=== PATIENT | female | born 1980 | race Caucasian/White ===

== ENCOUNTER 2025-03-24 13:36 | Emergency (ER) | payer MEDICAID, SELFPAY ==
[2025-03-24 13:37] VITALS: BMI 29.7
[2025-03-24 13:53] VITALS: BP 139/86; PULSE 91; RESP 19; TEMP 37.2; O2SAT 98
--- NOTE | 2025-03-24 14:00 | EDRME_ITS ---
Rapid Medical Screening Exam FOR[facility], LATER [facility] Arrival date/time: 03/24/25 13:36 44-year-old female with reported history of gastroparesis presents to the Emergency Department today for complaint of nausea and vomiting Chief Complaint: Nausea/Vomiting/Diarrhea Vital signs: Vital Signs Temperature 99.0 F 03/24/25 13:53 Pulse Rate 91 03/24/25 13:53 Respiratory Rate 19 03/24/25 13:53 Blood Pressure 139/86 H 03/24/25 13:53 Pulse Oximetry (%) 98 03/24/25 13:53 Oxygen Delivery Method Room Air 03/24/25 13:53
[2025-03-24 14:13] LABS: Collection Type, Urine Clean Catch
[2025-03-24 14:31] LABS: Bilirubin,Urine Negative (Negative); Blood,Urine 3+ (Negative); Clarity,Urine Clear (Clear/Hazy); Color,Urine Yellow (Lt Yel-Yel); Glucose, Urine Negative (Negative); Hyaline Casts,Urine < 1 /hpf (0-1); Ketones,Urine 2+ (Negative); Leukocyte Esterase,Urine Positive (Negative); Nitrite,Urine Negative (Negative); PH,Urine 6.0 (5.0-7.0); Protein,Urine 1+ (Neg - Trace); RBC,Urine 101 /hpf (0-3); Specific Gravity,Urine 1.036 (1.001-1.035); Squamous Epithelial Cell,Urine 17 /hpf (0-5); Urobilinogen,Urine Negative mg/dL (0.0-1.0); WBC,Urine 4 /hpf (0-5)
[2025-03-24] MEDS: METOCLOPRAMIDE INJ 5 MG/ML VIAL 2 ML 10 MG IM (14:51)
[2025-03-24 14:53] LABS: Lactate (Lactic Acid) 2.4 mMol/L (0.4-2.0)
[2025-03-24 14:54] LABS: Amphetamine/Methamp Scrn,U Negative (Negative); Barbiturate Screen,Urine Negative (Negative); Benzodiazepines Screen,Urine Negative (Negative); Benzoylecgonine Screen, Ur Negative (Negative); Fentanyl Screen,Urine Negative (Negative); Opiate Screen,Urine Negative (Negative); THC Screen,Urine Positive (Negative)
[2025-03-24 14:55] LABS: Basophils # (Auto) 0.0 Thou/mm3 (0.0-0.2); Basophils % (Auto) 0 % (0-2.5); Eosinophils # (Auto) 0.0 Thou/mm3 (0.0-0.5); Eosinophils % (Auto) 0 % (0-10); Hematocrit 40.5 % (36.0-46.0); Hemoglobin 14.0 g/dL (12.0-16.0); Immature Granulocytes Auto 0.04 Thou/mm3 (0.00-0.00); Lymphocytes # (Auto) 0.6 Thou/mm3 (1.0-4.8); Lymphocytes % (Auto) 5 % (10-50); Mean Corpuscular HGB Conc 34.6 g/dl (31.0-37.0); Mean Corpuscular Hemoglobin 29.6 pg (25.0-35.0); Mean Corpuscular Volume 86 fL (80-100); Monocytes # (Auto) 0.2 Thou/mm3 (0.0-0.8); Monocytes % (Auto) 2 % (0-12); Neutrophils # (Auto) 11.5 Thou/mm3 (1.8-7.7); Neutrophils % (Auto) 93 % (37-80); Nucleated Red Blood Cell # 0.00 Thou/mm3 (0.00-0.00); Nucleated Red Blood Cell % 0 /100 WBC (0); Platelet Count 282 Thou/mm3 (140-440); RDW Standard Deviation 39.4 fL (36.4-46.3); Red Blood Count 4.73 Miln/mm3 (4.00-5.20); White Blood Count 12.4 Thou/mm3 (3.6-11.0)
[2025-03-24 15:07] LABS: HCG,Qualitative Serum Negative
--- NOTE | 2025-03-24 15:12 | PD.EDNV ---
Nausea/Vomit./Diarrhea-RME/HPI General Chief complaint: Nausea/Vomiting/Diarrhea Stated complaint: N/V SINCE 5AM Time Seen by Provider: 03/24/25 18:14 Arrival date/time: 03/24/25 13:36 Limitations: no limitations RME / HPI RME / HPI Narrative: 03/24/25 13:36 44-year-old female with reported history of gastroparesis presents to the Emergency Department today for complaint of nausea and vomiting DR. HARVEY MAIN ED EVALUATION: 44 year old female with history of gastroparesis presents to the ED for evaluation of nausea and vomiting beginning at 05:30 AM today. States symptoms have remained constant with no known modifying factors. States presentation today is similar to previous gastroparesis flare ups. No other associated symptoms reported. Denies fevers, chills, chest pain, cough, shortness of breath, abdominal pain, diarrhea, constipation, or urinary symptoms. Related Data Home Medications ?Medication ?Instructions ?Recorded ?Confirmed duloxetine 60 mg capsule,delayed 60 mg PO DAILY 01/01/21 01/01/21 release levothyroxine 50 mcg tablet 50 mcg PO DAILY 01/01/21 01/01/21 multivitamin (Daily-Colin tablet) 1 tab PO DAILY 01/01/21 01/01/21 trazodone 150 mg tablet 150 mg PO HS 01/01/21 01/01/21 Previous Rx's ?Medication ?Instructions ?Recorded ztfeacxrfh-dxddgvlmdophj-ffrwvndk 1 cap PO Q8H PRN pain #14 caps 01/01/21 50 mg-300 mg-40 mg capsule (Fioricet) butalbital 50 mg-acetaminophen 300 1 cap PO Q4H PRN pain #10 caps 02/03/21 mg-caffeine 40 mg-codeine 30 mg cap (Fioricet with Codeine) hydrocodone 5 mg-acetaminophen 325 1 tab PO Q8H PRN pain #10 tabs 04/03/21 mg tablet acetaminophen 300 mg-codeine 30 mg 2 tab PO Q8H PRN pain #20 tabs 03/24/25 tablet cefdinir 300 mg capsule 300 mg PO BID 5 days #10 caps 03/24/25 metronidazole 500 mg tablet 500 mg PO BID #10 tabs 03/24/25 ondansetron 4 mg disintegrating 4 mg PO TID PRN nausea and 03/24/25 tablet vomiting 30 days #10 tabs Allergies Allergy/AdvReac Type Severity Reaction Status Date / Time hydrocodone AdvReac Intermediate Abdominal Verified 03/24/25 21:54 Pain Review of Systems Review of Systems Systems Reviewed: All systems reviewed, normal except as documented Past Medical History Past Medical History NEUROLOGIC: Positive Migraine CARDIAC: Positive Hypercholesterolemia RESPIRATORY: Positive Chronic Obstructive Pulmonary Disease (COPD) and Asthma GASTROINTESTINAL: Positive Gall Bladder Disease GENITOURINARY: Positive Kidney Stones MUSCULOSKELETAL: Positive Arthritis PSYCHO/SOCIAL: Positive Depression Surgical History SURGICAL: Positive Section Social History SMOKING STATUS: Current some day smoker SUBSTANCE USE: former substance user and marijuana (smokes marijuana, 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) ED Exam General Limitations: Present no limitations General appearance: Present alert and other (dry heaving during exam ) Head Head exam: Present atraumatic, normocephalic and normal inspection Eye Eye exam: Present normal appearance, PERRL and EOMI ENT ENT exam: Present normal exam, normal oropharynx and mucous membranes moist Neck Neck exam: Present normal inspection, full ROM and trachea midline Chest Chest inspection: Present normal inspection and symmetric chest wall rise Respiratory Respiratory exam: Present normal lung sounds bilaterally Cardiovascular Cardiovascular exam: Present regular rate, normal rhythm and normal heart sounds Abdominal Exam Abdominal exam: Present soft and normal bowel sounds Extremities Exam Extremities exam: Present normal inspection and full ROM Back Exam Back exam: Present normal inspection and full ROM Neurological Exam Neurological exam: Present alert, oriented X3 and CN II-XII intact Psychiatric Psychiatric exam: Present normal affect and normal mood Skin Skin exam: Present warm, dry, intact and normal color Course Quality Measures none Orders Category Date Time Status Bedside COVID-19 Antigen Test NOW Care 03/24/25 22:34 Completed Bedside Influenza A&B Antigen Test NOW Care 03/24/25 22:34 Completed Basket Turner NOW Care 03/24/25 15:44 Completed Continuous Pulse Oximetry NOW Care 03/24/25 15:44 Completed Insert IV NOW Care 03/24/25 15:[address] abdomen pelvis wo con Stat Exams 03/24/25 18:51 Completed US gall bladder Stat Exams 03/24/25 18:51 Completed Amylase Stat Lab 03/24/25 18:38 Completed Bilirubin,Direct Stat Lab 03/24/25 18:38 Completed Blood Culture (Lab) Stat Lab 03/24/25 14:40 Received CBC Stat Lab 03/24/25 14:40 Completed Comprehensive Metabolic Panel Stat Lab 03/24/25 14:40 Completed Drug Screen,Urine Stat Lab 03/24/25 14:00 Completed HCG,Qualitative Serum Stat Lab 03/24/25 14:40 Completed Lactate (Lactic Acid) Stat Lab 03/24/25 14:40 Completed Lactic Acid, 3 HR Stat Lab 03/24/25 18:38 Completed Lipase Stat Lab 03/24/25 18:38 Completed Magnesium Stat Lab 03/24/25 18:38 Completed Procalcitonin Stat Lab 03/24/25 14:40 Completed Urinalysis Stat Lab 03/24/25 14:00 Completed Urine Culture Stat Lab 03/24/25 14:00 Received Famotidine Inj [Pepcid Inj] Med 03/24/25 15:45 Discontinued 20 mg IVP X1 ONE HYDROmorphone INJ [Dilaudid Inj] Med 03/24/25 21:33 Discontinued 2 mg IVP X1 ONE MethylPREDNISolone. [SoluMEDROL Inj] Med 03/24/25 16:01 Discontinued 60 mg IVP X1 ONE MethylPREDNISolone.* [SoluMEDROL Inj] Med 03/24/25 22:03 Discontinued 125 mg IVP X1 ONE Metoclopramide Inj [Reglan Inj] Med 03/24/25 13:59 Discontinued 10 mg IM X1 ONE Ondansetron Inj [Zofran Inj] Med 03/24/25 15:45 Discontinued 4 mg IVP X1 ONE Ondansetron Inj [Zofran Inj] Med 03/24/25 21:33 Discontinued 4 mg IVP X1 ONE Sodium Chloride 0.9% 1000 ml [Ns] 1,000 ml Med 03/24/25 15:43 Discontinued IV 999 mls/hr Sodium Chloride 0.9% 1000 ml [Ns] 1,000 ml Med 03/24/25 21:33 Discontinued IV 999 mls/hr Ziprasidone Inj [Geodon Inj] Med 03/24/25 18:00 Discontinued 20 mg IM X1 ONE cefTRIAXone/D5w 1gm IV premix [Rocephin/D5w 1gm IV Med 03/24/25 21:33 Discontinued premix] 1 gm in 50 ml IV X1 metroNIDAZOLE/NS 500 MG IVPB [Flagyl 500 mg IV] Med 03/24/25 21:33 Discontinued 500 mg in 100 ml IV X1 Vital Signs Vital signs: Vital Signs Temperature 99.0 F 09/04/25 13:53 Pulse Rate 91 03/24/25 13:53 Respiratory Rate 19 03/24/25 13:53 Blood Pressure 139/86 H 03/24/25 13:53 Pulse Oximetry (%) 98 03/24/25 13:53 Oxygen Delivery Method Room Air 03/24/25 13:53 Pulse ox is 98% on room air which is adequate. Nausea/Vomiting/Diarrhea MDM Narrative MDM Narrative:: Glenis Aleman am scribing for and in the presence of Dr. Harvey. 1800: Patient signed out to Dr. Chavez pending reassessment after Geodon. Patient data External records reviewed:: [facility] previous records Clinical information provided by:: patient Social determinants that could affect healthcare access:: substance use (Marijuana ) Patient has the following chronic illnesses:: Gastroparesis How is presenting disease/condition affected by chronic disease/condition?: exacerbated by Evaluation data The following diagnostics were reviewed and interpreted by me:: lab results Lab and/or radiology exams considered but not ordered:: None Interpretation Summary: Leukocytosis Medications / Prescriptions Medications / Prescriptions considered but not ordered:: None Medication administrations:: Medication Administration History Discontinued Medications Famotidine (Famotidine Inj 10 Mg/Ml Vial 2 Ml) 20 mg IVP X1 ONE Stop: 03/24/25 15:46 Last Admin: 03/24/25 17:07 Dose: 20 mg Documented By: TOD Hydromorphone HCl (Hydromorphone Inj 2 Mg/Ml Vial) 2 mg IVP X1 ONE Stop: 03/24/25 21:34 Last Admin: 03/24/25 22:19 Dose: 2 mg Documented By: DARIUS Sodium Chloride (Ns) 1,000 mls @ 999 mls/hr IV .Q1H1M ONE Stop: 03/24/25 16:43 Last Infusion: 03/24/25 20:00 Dose: Infused Documented By: Admin: 03/24/25 17:06 Dose: 999 mls/hr Documented By: EF Sodium Chloride (Ns) 1,000 mls @ 999 mls/hr IV .Q1H1M ONE Stop: 03/24/25 22:33 Last Infusion: 03/24/25 23:15 Dose: Infused Documented By: Admin: 03/24/25 21:51 Dose: 999 mls/hr Documented By: EE Metronidazole (Flagyl 500 Mg Iv) 500 mg in 100 mls @ 100 mls/hr IV X1 ONE Stop: 03/24/25 22:32 Last Infusion: 03/24/25 23:37 Dose: Infused Documented By: Admin: 03/24/25 22:20 Dose: 100 mls/hr Documented By: EE Ceftriaxone Sodium/Dextrose (Rocephin/D5w 1gm Iv Premix) 1 gm in 50 mls @ 100 mls/hr IV X1 ONE Stop: 03/24/25 22:02 Last Infusion: 03/24/25 23:15 Dose: Infused Documented By: Admin: 03/24/25 22:19 Dose: 100 mls/hr Documented By: EE Methylprednisolone Sodium Succinate (Methylprednisolone Sod Succ 40 Mg/Ml Vial) 60 mg IVP X1 ONE Stop: 03/24/25 16:02 Last Admin: 03/24/25 17:07 Dose: 60 mg Documented By: EF Methylprednisolone Sodium Succinate (Methylprednisolone Sod Succ 62.5 Mg/Ml 2ml Vial) 125 mg IVP X1 ONE Stop: 03/24/25 22:04 Last Admin: 03/24/25 22:19 Dose: 125 mg Documented By: EE Metoclopramide HCl (Metoclopramide Inj 5 Mg/Ml Vial 2 Ml) 10 mg IM X1 ONE; Protocol Stop: 03/24/25 14:00 Last Admin: 03/24/25 14:51 Dose: 10 mg Documented By: ROBERT Ondansetron HCl (Ondansetron Inj 2 Mg/Ml Inj 2 Ml) 4 mg IVP X1 ONE; Protocol Stop: 03/24/25 15:46 Last Admin: 03/24/25 17:07 Dose: 4 mg Documented By: EF Ondansetron HCl (Ondansetron Inj 2 Mg/Ml Inj 2 Ml) 4 mg IVP X1 ONE; Protocol Stop: 03/24/25 21:34 Last Admin: 03/24/25 21:52 Dose: 4 mg Documented By: EE Ziprasidone (Ziprasidone Inj 20 Mg/Ml Vial (Non-Formulary)) 20 mg IM X1 ONE Stop: 03/24/25 18:01 Last Admin: 03/24/25 18:58 Dose: 20 mg Documented By: DB See above Consultations Consultation(s) initiated? (list below): No Diagnosis Nausea Differential Diagnosis: gastroenteritis, drug-induced nausea and vomiting and dehydration Most likely diagnosis given after review of the tests above:: Nausea, vomiting Admission Indicated Admission indicated?: not indicated Explain why admission is indicated or not indicated:: Signed out pending final disposition Admission Request Was there a request for admission?: No Disposition Plan Disposition Plan: other (specify) (signed out to Dr. Chavez ) Discharge Plan Plan Patient Disposition: HOME (Self Care) Prescriptions/Referrals Prescriptions/Med Rec: New metronidazole 500 mg tablet 500 mg PO BID Qty: 10 0RF acetaminophen-codeine 300-30 mg tablet 2 tab PO Q8H MDD 6 PRN (Reason: pain) Qty: 20 0RF ondansetron 4 mg tablet,disintegrating 4 mg PO TID PRN (Reason: nausea and vomiting) 30 Days Qty: 10 0RF cefdinir 300 mg capsule 300 mg PO BID 5 Days Qty: 10 0RF No Action multivitamin [Daily-Colin] Tablet 1 tab PO DAILY levothyroxine 50 mcg tablet 50 mcg PO DAILY trazodone 150 mg tablet 150 mg PO HS duloxetine 60 mg capsule,delayed release(DR/EC) 60 mg PO DAILY Patient Comments: TAKE 1 CAPSULE BY MOUTH EVERY DAY aptnelddrc-szohkjmxecpss-gzev [Fioricet] 50-300-40 mg capsule 1 cap PO Q8H PRN (Reason: pain) Qty: 14 0RF rzyseyxpsn-ojmfwzffoe-izd-cod [Fioricet with Codeine] [id number] mg capsule 1 cap PO Q4H PRN (Reason: pain) Qty: 10 0RF hydrocodone-acetaminophen 5-325 mg tablet 1 tab PO Q8H MDD 3 PRN (Reason: pain) Qty: 10 0RF Referrals: No Primary/Family,Physician [Primary Care Provider] - In 1 week Problem List Clinical Impression: Enteritis Patient/Caregiver Discharge Instructions Discharge Activity: activity as tolerated Education Materials: ED Gastroenteritis, Noninfectious Additional Instructions: Discharge Instructions from Dr. Chavez: 1. After evaluation, you have enteritis, infection of your intestines. 2. Take cefdinir and Flagyl for the infection. 3. Your job is to stay hydrated.? Zofran for nausea/vomiting.? Increase oral fluid and maintain clear urine.? If dark or yellow, increase oral fluid. 4. Tylenol with codeine for severe pain. 5. Some good choices are water (but not only water because it will cause electrolyte abnormalities), sports drinks like Gatorade (with less sugar content), coconut water, chicken stock, and other fluid with electrolytes (like Pedialyte). 6. See a private doctor on 03/25/2025 for recheck and further care. Ask to review all test results and official radiology reports, to make sure you receive all necessary follow-ups and monitoring. To make sure there is no serious intra-abdominal condition, ask for help with more investigation not available here in the ER. Such as EGD or scoping the stomach, colonoscopy or scoping the colon, and referral to see straightedge machine operator helper. Ask for help until you are completely better. 7. Seek immediate medical care with worsening or with any concerns. Print Language: Irish Stand Alone Forms: [employer] Award Info., Patient Portal Info Letter
[2025-03-24 15:20] LABS: Alanine Aminotransferase 28 U/L (10-49); Albumin, Serum 4.9 gm/dL (3.5-5.0); Albumin/Globulin Ratio 1.8 (1.2-2.2); Alkaline Phosphatase 108 U/L (46-116); Anion Gap 14 (7-16); Aspartate Amino Transferase 21 U/L (0-34); BUN/Creatinine Ratio 11 Ratio (12-20); Bilirubin,Total 0.5 mg/dL (0.3-1.2); Blood Urea Nitrogen 12 mg/dL (9-23); Calcium 11.1 mg/dL (8.3-10.6); Calcium (Corrected) 11.1 mg/dL (8.5-10.1); Carbon Dioxide 20.7 mMol/L (20.0-31.0); Chloride 108 mMol/L (98-107); Creatinine (Component) 1.1 mg/dL (0.6-1.3); Estimated Creatinine Clearance 66.8 mL/min (>60); Globulin 2.7 gm/dL (2.3-3.5); Glucose 124 mg/dL (74-106); Osmolality,Calculated 285 (275-295); Potassium 4.2 mMol/L (3.4-5.1); Procalcitonin < 0.04 ng/ml (0.0-0.49); Sodium 143 mMol/L (136-145); Total Protein 7.6 gm/dL (5.7-8.2); eGFR > 60 See Note
[2025-03-24 15:44] VITALS: PULSE 88
[2025-03-24 16:26] VITALS: BP 111/72; PULSE 86; RESP 18; TEMP 37.2; O2SAT 98
[2025-03-24] MEDS: SODIUM CHLORIDE 0.9% 1000 ML 1,000 ML 999 ML IV ×2 (17:06→21:51)
[2025-03-24] MEDS: ONDANSETRON INJ 2 MG/ML INJ 2 ML 4 MG IVP ×2 (17:07→21:52)
[2025-03-24] MEDS: FAMOTIDINE INJ 10 MG/ML VIAL 2 ML 20 MG IVP (17:07)
[2025-03-24 17:51] LABS: Reflex Lactate? Y
[2025-03-24 18:07] VITALS: BP 126/94; PULSE 87; RESP 16; TEMP 36.8; O2SAT 96
--- NOTE | 2025-03-24 18:23 | EDNOTE_ITS ---
Emergency Room Addendum <Aundrea Glass - Last Filed: 03/24/25 22:39> Addendum Narrative: I took over the care from Dr. Suarez at 6 PM on 03/24/2025, see his notes for complete H&P and ED course. I reviewed all diagnostic test results. My review of the gallbladder ultrasound report is NAD. My review of the CT abdomen pelvis report is enteritis. At this point, diagnoses include: Enteritis Treatment here included: Geodon Solumedrol Dilaudid Zofran IV fluid Rocephin Flaygyl Based on my best medical judgment, made decision no further evaluation or treatment indicated at this time. Patient understands and agrees to the discharge instructions customized and printed, see below. Discharge Instructions from Dr. Chavez: 1. After evaluation, you have enteritis, infection of your intestines. 2. Take cefdinir and Flagyl for the infection. 3. Your job is to stay hydrated.? Zofran for nausea/vomiting.? Increase oral fluid and maintain clear urine.? If dark or yellow, increase oral fluid. 4. Tylenol with codeine for severe pain. 5. Some good choices are water (but not only water because it will cause electrolyte abnormalities), sports drinks like Gatorade (with less sugar content), coconut water, chicken stock, and other fluid with electrolytes (like Pedialyte). 6. See a private doctor on 03/25/2025 for recheck and further care. Ask to review all test results and official radiology reports, to make sure you receive all necessary follow-ups and monitoring. To make sure there is no serious intra-abdominal condition, ask for help with more investigation not available here in the ER. Such as EGD or scoping the stomach, colonoscopy or scoping the colon, and referral to see hotel front office manager. Ask for help until you are completely better. 7. Seek immediate medical care with worsening or with any concerns. David Chavez MD <David Chavez MD - Last Filed: 03/27/25 09:38> Addendum Narrative: I took over the care from Dr. Suarez at 6 PM on 03/24/2025, see his notes for complete H&P and ED course. I reviewed all diagnostic test results. My review of the gallbladder ultrasound report is NAD. My review of the CT abdomen pelvis report is enteritis. Blood and urine tests unremarkable. At this point, diagnoses include: Enteritis Treatment here from me included: Solumedrol Dilaudid Zofran IV fluid Rocephin Flaygyl Significant improvement noted. Recommended outpatient management. Based on my best medical judgment, made decision no further evaluation or treatment indicated at this time. Patient understands and agrees to the discharge instructions customized and printed, see below. Discharge Instructions from Dr. Chavez: 1. After evaluation, you have enteritis, infection of your intestines. 2. Take cefdinir and Flagyl for the infection. 3. Your job is to stay hydrated.? Zofran for nausea/vomiting.? Increase oral fluid and maintain clear urine.? If dark or yellow, increase oral fluid. 4. Tylenol with codeine for severe pain. 5. Some good choices are water (but not only water because it will cause electrolyte abnormalities), sports drinks like Gatorade (with less sugar content), coconut water, chicken stock, and other fluid with electrolytes (like Pedialyte). 6. See a private doctor on 03/25/2025 for recheck and further care. Ask to review all test results and official radiology reports, to make sure you receive all necessary follow-ups and monitoring. To make sure there is no serious intra-abdominal condition, ask for help with more investigation not available here in the ER. Such as EGD or scoping the st omach, colonoscopy or scoping the colon, and referral to see hotel front office manager. Ask for help until you are completely better. 7. Seek immediate medical care with worsening or with any concerns. David Chavez MD
--- NOTE | 2025-03-24 18:51 | XR_ITS ---
Examination: Abdomen sonogram, Limited Date and time of exam: March 24, 2025, 1855 hrs. Indications: Upper abdominal pain and tenderness with vomiting today Technique: Real-time caballero scale transabdominal sonographic images of the upper abdomen obtained. Findings: Absent gallbladder Normal common bile duct 0.3 cm. Pancreatic head 1.8 cm. Liver 14.1 cm no focal liver lesions. Normal hepatopedal portal venous flow. Patent IVC. Impression: Absent gallbladder. Normal common bile duct.
--- NOTE | 2025-03-24 18:51 | XR_ITS ---
Examination: CT abdomen and pelvis without contrast. Coronal 3-D reconstructions. Sagittal 2-D reconstructions. Date and time of exam:March 24, 2025, 1936 hrs. Indications: Generalized abdominal pain and lower back pain beginning today CTDI: vol (mGy): 8.96. DLP: (mGycm): 198. Technique: Axial images of the abdomen have been obtained, 3 mm slice thickness Intravenous contrast material has not been administered. Low dose protocols were performed. One or more of the following dose reduction techniques were used; automated exposure control, adjustment of the mA and/or KV according to patient size, use of iterative reconstruction technique. Findings: No focal liver or splenic lesion. Absent gallbladder. No pancreatic or adrenal mass. No renal or ureteral calculi, no hydronephrosis. Aorta normal size. 12 mm fat-containing umbilical hernia. Absent appendix. Mildly fluid distended small bowel loops No bowel obstruction Anteverted uterus. No bladder mass. Moderate disc narrowing L5-S1 Impression: No renal or ureteral calculi, no hydronephrosis Absent appendix Mild small bowel ileus versus enteritis, clinical correlation advised Moderate degenerative disc disease L5-S1
[2025-03-24] MEDS: ZIPRASIDONE INJ 20 MG/ML VIAL (NON-FORMULARY) IM (18:58)
[2025-03-24 19:03] LABS: Lactic Acid, 3 HR 1.9 mMol/L (0.4-2.0)
[2025-03-24 19:49] LABS: Amylase 90 U/L (30-118); Bilirubin,Direct 0.1 mg/dL (0.0-0.3); Lipase 41 U/L (12-53); Magnesium 1.6 mg/dL (1.6-2.6)
[2025-03-24 20:39] VITALS: BP 100/66; PULSE 85; RESP 18; TEMP 36.7; O2SAT 97
[2025-03-24] MEDS: HYDROmorphone INJ 2 MG/ML VIAL IVP (22:19)
[2025-03-24] MEDS: MethylPREDNISolone SOD SUCC 62.5 MG/ML 2ML VIAL 125 MG IVP (22:19)
[2025-03-24] MEDS: cefTRIAXone/D5w 1gm IV premix 1 GM/50 ML BAG IV (22:19)
[2025-03-24] MEDS: metroNIDAZOLE/NS 500 MG IVPB 500 MG/100 ML BAG 100 MG IV (22:20)
== END 2025-03-25 | disposition home or self-care (01) ==
PROVIDERS: Nurse Practitioner Primary Care; Emergency Provider Emergency Medicine
DX: K52.9 Noninfective gastroenteritis and colitis, unspecified (principal)
CPT/HCPCS: 36415; 74176; 76705; 80053; 80307; 81001; 81025; 82150; 82248; 83605; 83690; 83735; 84145; 84703; 85025; 87040; 87086; 96361; 96365; 96372; 96375; 96376; 99283; J0696; J1171; J2405; J2765; J2919; J3486; J3490; J7030; J1836

== ENCOUNTER 2025-03-25 19:00 | Emergency (ER) | payer OTHER, SELFPAY ==
[2025-03-25 19:02] VITALS: BP 117/81; PULSE 97; RESP 19; O2SAT 98
--- NOTE | 2025-03-25 19:04 | EKG_ITS ---
[facility] Test Date: 2025-03-25 Pat Name: KENAN CHI Department: Room: - Gender: Female Plc Programmer: : 1980 Requested By: ED Temporary Provider Order Number: [id number] Reading MD: ED Temporary Provider Measurements Intervals [place] Rate: 101 P: AK: QRS: 62 QRSD: 89 T: 66 QT: 337 QTc: 437 Interpretive Statements ATRIAL FIBRILLATION WITH RAPID VENTRICULAR RESPONSE ABNORMAL RHYTHM ECG Compared to ECG 08/12/2020 12:18:05 Sinus rhythm no longer present Short AK interval no longer present /store/S0/[id number]
[2025-03-25 19:21] VITALS: BP 125/76; PULSE 101; RESP 20; TEMP 37.4; O2SAT 98; BMI 29.7
--- NOTE | 2025-03-25 19:47 | PD.EDNV ---
Nausea/Vomit./Diarrhea-RME/HPI General Chief complaint: Chest Pain Stated complaint: C/P STARTED AN HOUR AGO Time Seen by Provider: 03/25/25 19:39 Arrival date/time: 03/25/25 19:00 RME / HPI RME / HPI Narrative: 44-year-old female patient was brought in for evaluation regarding vomiting. Patient was seen here yesterday for the same complaints, was sent home with no vomiting however patient told me that ever since she was discharged she has just continued to have vomiting, although still complaining epigastric pain radiated to the substernal area, described as burning-like sensation severity moderate. Pain started like an hour ago. Patient denies any shortness of breath. Denies any other complaints or medications taken prior to arrival. Patient admits of smoking marijuana. Related Data Home Medications ?Medication ?Instructions ?Recorded ?Confirmed duloxetine 60 mg capsule,delayed 60 mg PO DAILY 01/01/21 01/01/21 release levothyroxine 50 mcg tablet 50 mcg PO DAILY 01/01/21 01/01/21 multivitamin (Daily-Colin tablet) 1 tab PO DAILY 01/01/21 01/01/21 trazodone 150 mg tablet 150 mg PO HS 01/01/21 01/01/21 Previous Rx's ?Medication ?Instructions ?Recorded csfrlibjty-qlamwyegxglpv-yuziywyc 1 cap PO Q8H PRN pain #14 caps 01/01/21 50 mg-300 mg-40 mg capsule (Fioricet) butalbital 50 mg-acetaminophen 300 1 cap PO Q4H PRN pain #10 caps 02/03/21 mg-caffeine 40 mg-codeine 30 mg cap (Fioricet with Codeine) hydrocodone 5 mg-acetaminophen 325 1 tab PO Q8H PRN pain #10 tabs 04/03/21 mg tablet acetaminophen 300 mg-codeine 30 mg 2 tab PO Q8H PRN pain #20 tabs 03/24/25 tablet cefdinir 300 mg capsule 300 mg PO BID 5 days #10 caps 03/24/25 metronidazole 500 mg tablet 500 mg PO BID #10 tabs 03/24/25 ondansetron 4 mg disintegrating 4 mg PO TID PRN nausea and 03/24/25 tablet vomiting 30 days #10 tabs famotidine 40 mg tablet (Pepcid) 40 mg PO BID #20 tabs 03/25/25 metoclopramide HCl 10 mg tablet 10 mg PO Q6H PRN nausea and 03/25/25 (Reglan) vomiting #30 tabs Allergies Allergy/AdvReac Type Severity Reaction Status Date / Time hydrocodone AdvReac Intermediate Abdominal Verified 03/25/25 19:02 Pain Review of Systems Review of Systems Narrative Review of Systems: Review of system reviewed and within normal limits except mentioned in HPI ED Exam Narrative Physical exam: VITAL SIGNS: Reviewed. GENERAL APPEARANCE: Alert and interactive, follows commands, no acute distress, HEAD AND FACE: Non-traumatic. ENT: PERRL, pink conjunctivitis, eyelid no trauma, Mucous membrane moist. NECK: Supple, nontender, no nuchal rigidity. CHEST: No tenderness, no crepitus, no paradoxical movement, no retractions. LUNGS: Clear, well ventilated, symmetric, no rales, no wheezing, no ronchi, no stridor, good breath sounds bilaterally. HEART: Regular rate, regular rhythm, no murmur, no gallops. ABDOMEN: Soft, positive bowel sounds, nondistended, no guarding, epigastric tenderness, no rebound, no masses, RECTAL: Deferred. GENITAL: Deferred. NEUROLOGICAL: Gross motor function intact sensory function intact, Appropriate for age. MUSCULOSKELETAL: low back nontender, full range of motion. EXTREMITIES: Nontender, full range of motion. SKIN: Color pink, dry, no rash, no lacerations, no abrasions, no contusions. LYMPHATICS: Deferred. Course Quality Measures none Orders Category Date Time Status EKG (ED ONLY) *Do not use* NOW Care 03/25/25 19:04 Completed Insert IV NOW Care 03/25/25 22:34 Active EKG (ED Only) Stat Exams 03/25/25 19:04 Ordered EKG (ED Only) Urgent Exams 03/25/25 19:04 Draft CBC [CBC] Stat Lab 03/25/25 20:03 Completed CMP [Comprehensive Metabolic Panel] Stat Lab 03/25/25 20:03 Completed Lipase Stat Lab 03/25/25 20:03 Completed Famotidine Inj [Pepcid Inj] Med 03/25/25 19:45 Discontinued 20 mg IVP X1 ONE Haloperidol Lactate [Haldol Inj] Med 03/25/25 19:45 Discontinued 5 mg IM X1 ONE Metoclopramide Inj [Reglan Inj] Med 03/25/25 19:45 Discontinued 10 mg IVP X1 ONE Ringers Lactated 1000 ml [Lactated Ringers] 1,000 ml Med 03/25/25 19:46 Discontinued IV 999 mls/hr Vital Signs Vital signs: Vital Signs Pulse Rate 97 03/25/25 19:02 Respiratory Rate 19 03/25/25 19:02 Blood Pressure 117/81 03/25/25 19:02 Pulse Oximetry (%) 98 03/25/25 19:02 Oxygen Delivery Method Room Air 03/25/25 19:02 Nausea/Vomiting/Diarrhea MDM Narrative MDM Narrative:: 44-year-old female patient was brought in for evaluation regarding vomiting. Patient was seen here yesterday for the same complaints, was sent home with no vomiting however patient told me that ever since she was discharged she has just continued to have vomiting, although still complaining epigastric pain radiated to the substernal area, described as burning-like sensation severity moderate. Pain started like an hour ago. Patient denies any shortness of breath. Denies any other complaints or medications taken prior to arrival. Patient admits of smoking marijuana. EKG showed normal sinus rhythm, ventricular to 101 bpm, ST segment elevation depression noted. Patient's laboratory workup came back unremarkable except for leukocytosis of 20,000 which could be reactive in nature due to vomiting.. Patient received IV fluids, Pepcid IV Haldol IM IV fluids and Reglan with complete resolution of symptoms no more vomiting noted in the ED. I reviewed patient's imaging that was done yesterday and it showed enteritis per CT scan. I did not repeat the CT scan today. Patient's vomiting secondary to marijuana abuse. Patient data External records reviewed:: None Clinical information provided by:: patient Social determinants that could affect healthcare access:: none Patient has the following chronic illnesses:: Marijuana abuse How is presenting disease/condition affected by chronic disease/condition?: exacerbated by Evaluation data The following diagnostics were reviewed and interpreted by me:: lab results, radiology exam(s) and EKG tracing(s) Lab and/or radiology exams considered but not ordered:: None Interpretation Summary: See results MDM Medications / Prescriptions Medications / Prescriptions considered but not ordered:: None Medication administrations:: Medication Administration History Discontinued Medications Famotidine (Famotidine Inj 10 Mg/Ml Vial 2 Ml) 20 mg IVP X1 ONE Stop: 03/25/25 19:46 Last Admin: 03/25/25 22:58 Dose: 20 mg Documented By: BD Haloperidol Lactate (Haloperidol Lact Inj 5 Mg/Ml Vial) 5 mg IM X1 ONE Stop: 03/25/25 19:46 Last Admin: 03/25/25 22:52 Dose: 5 mg Documented By: BD Lactated Ringer's (Lactated Ringers) 1,000 mls @ 999 mls/hr IV .Q1H1M ONE Stop: 03/25/25 20:46 Last Admin: 03/25/25 22:59 Dose: 999 mls/hr Documented By: BD Metoclopramide HCl (Metoclopramide Inj 5 Mg/Ml Vial 2 Ml) 10 mg IVP X1 ONE; Protocol Stop: 03/25/25 19:46 Last Admin: 03/25/25 22:58 Dose: 10 mg Documented By: BD Reglan, IV fluids, Haldol Pepcid Consultations Consultation(s) initiated? (list below): No Diagnosis Nausea Differential Diagnosis: traveler's diarrhea, food poisoning and gastroenteritis Most likely diagnosis given after review of the tests above:: Cannabinoid hyperemesis syndrome Admission Indicated Admission indicated?: not indicated Admission Request Was there a request for admission?: No Disposition Plan Disposition Plan: Discharge Discharge Attestation Discharge Attestation: The patient was given an opportunity to ask questions and understood the discharge instructions. Discharge instructions specifically effects, indications for sooner follow up or return to the emergency department, and the expected course of current diagnosis. Patient condition: Stable Discharge Plan Plan Patient Disposition: HOME (Self Care) Discharge Disposition comment: Stable Prescriptions/Referrals Prescriptions/Med Rec: New famotidine [Pepcid] 40 mg tablet 40 mg PO BID Qty: 20 0RF metoclopramide HCl [Reglan] 10 mg tablet 10 mg PO Q6H PRN (Reason: nausea and vomiting) Qty: 30 0RF No Action multivitamin [Daily-Colin] Tablet 1 tab PO DAILY levothyroxine 50 mcg tablet 50 mcg PO DAILY trazodone 150 mg tablet 150 mg PO HS duloxetine 60 mg capsule,delayed release(DR/EC) 60 mg PO DAILY Patient Comments: TAKE 1 CAPSULE BY MOUTH EVERY DAY hrxhkvaxpk-yklmglxydezkd-nmhn [Fioricet] 50-300-40 mg capsule 1 cap PO Q8H PRN (Reason: pain) Qty: 14 0RF ofokwysoyq-wpgcalakvq-nma-cod [Fioricet with Codeine] 96-577-18-30 mg capsule 1 cap PO Q4H PRN (Reason: pain) Qty: 10 0RF hydrocodone-acetaminophen 5-325 mg tablet 1 tab PO Q8H MDD 3 PRN (Reason: pain) Qty: 10 0RF metronidazole 500 mg tablet 500 mg PO BID Qty: 10 0RF acetaminophen-codeine 300-30 mg tablet 2 tab PO Q8H MDD 6 PRN (Reason: pain) Qty: 20 0RF ondansetron 4 mg tablet,disintegrating 4 mg PO TID PRN (Reason: nausea and vomiting) 30 Days Qty: 10 0RF cefdinir 300 mg capsule 300 mg PO BID 5 Days Qty: 10 0RF Referrals: No Primary/Family,Physician [Primary Care Provider] - In 1 week Problem List Clinical Impression: Cannabinoid hyperemesis syndrome Patient/Caregiver Discharge Instructions Education Materials: ED Vomiting and Diarrhea ... Additional Instructions: Thank you for the opportunity for serving you today. You are stable for discharged . You are advised to: Follow-up with your PCP in 1 to 2 days Return to ED for worsening of symptoms Increase oral fluids Take medication as prescribed Please stop smoking marijuana because it can worsen your nausea and vomiting Print Language: Mongolian Stand Alone Forms: [employer] Award Info., Patient Portal Info Letter PA/TENZIN Supervising Physician JINA/TENZIN Supervising Physician: MD Dexter
[2025-03-25 20:23] LABS: Basophils # (Auto) 0.0 Thou/mm3 (0.0-0.2); Basophils % (Auto) 0 % (0-2.5); Eosinophils # (Auto) 0.0 Thou/mm3 (0.0-0.5); Eosinophils % (Auto) 0 % (0-10); Hematocrit 37.0 % (36.0-46.0); Hemoglobin 12.7 g/dL (12.0-16.0); Immature Granulocytes Auto 0.09 Thou/mm3 (0.00-0.00); Lymphocytes # (Auto) 1.6 Thou/mm3 (1.0-4.8); Lymphocytes % (Auto) 8 % (10-50); Mean Corpuscular HGB Conc 34.3 g/dl (31.0-37.0); Mean Corpuscular Hemoglobin 29.8 pg (25.0-35.0); Mean Corpuscular Volume 87 fL (80-100); Monocytes # (Auto) 1.6 Thou/mm3 (0.0-0.8); Monocytes % (Auto) 8 % (0-12); Neutrophils # (Auto) 17.2 Thou/mm3 (1.8-7.7); Neutrophils % (Auto) 84 % (37-80); Nucleated Red Blood Cell # 0.00 Thou/mm3 (0.00-0.00); Nucleated Red Blood Cell % 0 /100 WBC (0); Platelet Count 282 Thou/mm3 (140-440); RDW Standard Deviation 41.6 fL (36.4-46.3); Red Blood Count 4.26 Miln/mm3 (4.00-5.20); White Blood Count 20.5 Thou/mm3 (3.6-11.0)
[2025-03-25 20:49] LABS: Alanine Aminotransferase 23 U/L (10-49); Albumin, Serum 4.8 gm/dL (3.5-5.0); Albumin/Globulin Ratio 1.8 (1.2-2.2); Alkaline Phosphatase 94 U/L (46-116); Anion Gap 16 (7-16); Aspartate Amino Transferase 22 U/L (0-34); BUN/Creatinine Ratio 14 Ratio (12-20); Bilirubin,Total 0.5 mg/dL (0.3-1.2); Blood Urea Nitrogen 13 mg/dL (9-23); Calcium 9.6 mg/dL (8.3-10.6); Calcium (Corrected) 9.6 mg/dL (8.5-10.1); Carbon Dioxide 21.1 mMol/L (20.0-31.0); Chloride 105 mMol/L (98-107); Creatinine (Component) 0.9 mg/dL (0.6-1.3); Estimated Creatinine Clearance 81.7 mL/min (>60); Globulin 2.7 gm/dL (2.3-3.5); Glucose 115 mg/dL (74-106); Osmolality,Calculated 284 (275-295); Potassium 3.5 mMol/L (3.4-5.1); Sodium 142 mMol/L (136-145); Total Protein 7.5 gm/dL (5.7-8.2); eGFR > 60 See Note
[2025-03-25 21:55] VITALS: BP 136/69; PULSE 76; RESP 15; TEMP 37.4; O2SAT 98
[2025-03-25 22:02] LABS: Lipase 45 U/L (12-53)
[2025-03-25] MEDS: HALOPERIDOL LACT INJ 5 MG/ML VIAL IM (22:52)
[2025-03-25] MEDS: METOCLOPRAMIDE INJ 5 MG/ML VIAL 2 ML 10 MG IVP (22:58)
[2025-03-25] MEDS: FAMOTIDINE INJ 10 MG/ML VIAL 2 ML 20 MG IVP (22:58)
[2025-03-25] MEDS: RINGERS LACTATED 1000 ML 1,000 ML 999 ML IV (22:59)
[2025-03-25 23:52] VITALS: BP 136/69; PULSE 76; RESP 20; TEMP 37.6; O2SAT 96
== END 2025-03-26 00:19 | disposition home or self-care (01) ==
PROVIDERS: Nurse Practitioner Family; Emergency Provider Emergency Medicine
DX: R11.2 Nausea with vomiting, unspecified (principal); F12.10 Cannabis abuse, uncomplicated; D72.829 Elevated white blood cell count, unspecified; R07.2 Precordial pain
CPT/HCPCS: 36415; 80053; 83690; 85025; 93005; 96361; 96372; 96374; 96375; 99283; J1630; J2765; J3490; J7120

== ENCOUNTER 2025-03-27 05:46 | Emergency (ER) | payer OTHER, SELFPAY ==
[2025-03-27 05:47] VITALS: BMI 29.2
[2025-03-27 06:33] VITALS: BP 121/86; PULSE 86; RESP 18; TEMP 37.3; O2SAT 96
--- NOTE | 2025-03-27 06:48 | PD.EDRME ---
Rapid Medical Screening Exam E Arrival date/time: 03/27/25 05:46 This is a 44-year-old female that comes into the emergency room with complaints of nausea vomiting and abdominal pain. Patient the emergency room 2 times in the last week. For the same symptoms. Patient's had a CT scan and a ultrasound of the gallbladder. Patient states she is not able to keep any food down. Patient has a history of hypothyroidism. Patient has a history of depression. I have greeted and performed a focused initial assessment of this patient. Initial appropriate labs ordered at this time. A comprehensive ED assessment and evaluation of the patient and analysis of all test and completion of medical decision making process will be conducted by additional ED provider. Chief Complaint: Abdominal Pain Time Seen by Provider: 03/27/25 06:17 Vital signs: Vital Signs Temperature 99.2 F 03/27/25 06:33 Pulse Rate 86 03/27/25 06:33 Respiratory Rate 18 03/27/25 06:33 Blood Pressure 121/86 H 03/27/25 06:33 Pulse Oximetry (%) 96 03/27/25 06:33 Oxygen Delivery Method Room Air 03/27/25 06:33
[2025-03-27 07:05] LABS: Basophils # (Auto) 0.0 Thou/mm3 (0.0-0.2); Basophils % (Auto) 0 % (0-2.5); Eosinophils # (Auto) 0.0 Thou/mm3 (0.0-0.5); Eosinophils % (Auto) 0 % (0-10); Hematocrit 37.3 % (36.0-46.0); Hemoglobin 12.9 g/dL (12.0-16.0); Immature Granulocytes Auto 0.07 Thou/mm3 (0.00-0.00); Lymphocytes # (Auto) 1.5 Thou/mm3 (1.0-4.8); Lymphocytes % (Auto) 13 % (10-50); Mean Corpuscular HGB Conc 34.6 g/dl (31.0-37.0); Mean Corpuscular Hemoglobin 30.1 pg (25.0-35.0); Mean Corpuscular Volume 87 fL (80-100); Monocytes # (Auto) 1.4 Thou/mm3 (0.0-0.8); Monocytes % (Auto) 12 % (0-12); Neutrophils # (Auto) 8.9 Thou/mm3 (1.8-7.7); Neutrophils % (Auto) 75 % (37-80); Nucleated Red Blood Cell # 0.00 Thou/mm3 (0.00-0.00); Nucleated Red Blood Cell % 0 /100 WBC (0); Platelet Count 234 Thou/mm3 (140-440); RDW Standard Deviation 41.1 fL (36.4-46.3); Red Blood Count 4.29 Miln/mm3 (4.00-5.20); White Blood Count 11.9 Thou/mm3 (3.6-11.0)
--- NOTE | 2025-03-27 07:47 | PD.EDABDPN ---
ED Abdominal Pain RME/HPI General Chief Complaint: Abdominal Pain Stated complaint: VOMITING, ABD PAIN Time seen by provider: 03/27/25 06:17 Arrival date/time: 03/27/25 05:46 RME / HPI RME / HPI narrative: 03/27/25 05:46 This is a 44-year-old female that comes into the emergency room with complaints of nausea vomiting and abdominal pain. Patient the emergency room 2 times in the last week. For the same symptoms. Patient's had a CT scan and a ultrasound of the gallbladder. Patient states she is not able to keep any food down. Patient has a history of hypothyroidism. Patient has a history of depression. I have greeted and performed a focused initial assessment of this patient. Initial appropriate labs ordered at this time. A comprehensive ED assessment and evaluation of the patient and analysis of all test and completion of medical decision making process will be conducted by additional ED provider. ------ See [facility] for Dr. Walters's HPI documentation. Related Data Home Medications ?Medication ?Instructions ?Recorded ?Confirmed duloxetine 60 mg capsule,delayed 60 mg PO DAILY 01/01/21 01/01/21 release levothyroxine 50 mcg tablet 50 mcg PO DAILY 01/01/21 01/01/21 multivitamin (Daily-Colin tablet) 1 tab PO DAILY 01/01/21 01/01/21 trazodone 150 mg tablet 150 mg PO HS 01/01/21 01/01/21 Previous Rx's ?Medication ?Instructions ?Recorded fuveboadbv-zvshakrhnknrf-uihgsavu 1 cap PO Q8H PRN pain #14 caps 01/01/21 50 mg-300 mg-40 mg capsule (Fioricet) butalbital 50 mg-acetaminophen 300 1 cap PO Q4H PRN pain #10 caps 02/03/21 mg-caffeine 40 mg-codeine 30 mg cap (Fioricet with Codeine) hydrocodone 5 mg-acetaminophen 325 1 tab PO Q8H PRN pain #10 tabs 04/03/21 mg tablet acetaminophen 300 mg-codeine 30 mg 2 tab PO Q8H PRN pain #20 tabs 03/24/25 tablet cefdinir 300 mg capsule 300 mg PO BID 5 days #10 caps 03/24/25 metronidazole 500 mg tablet 500 mg PO BID #10 tabs 03/24/25 ondansetron 4 mg disintegrating 4 mg PO TID PRN nausea and 03/24/25 tablet vomiting 30 days #10 tabs famotidine 40 mg tablet (Pepcid) 40 mg PO BID #20 tabs 03/25/25 metoclopramide HCl 10 mg tablet 10 mg PO Q6H PRN nausea and 03/25/25 (Reglan) vomiting #30 tabs Allergies Allergy/AdvReac Type Severity Reaction Status Date / Time hydrocodone AdvReac Intermediate Abdominal Verified 03/25/25 19:02 Pain Review of Systems Review of Systems Systems Reviewed: All systems reviewed, normal except as documented Past Medical History Past Medical History NEUROLOGIC: Positive Migraine; Negative Neurological Disorders CARDIAC: Positive Hypercholesterolemia; Negative Cardiac Disorders or Congestive Heart Failure RESPIRATORY: Positive Chronic Obstructive Pulmonary Disease (COPD) and Asthma GASTROINTESTINAL: Positive Gastrointestinal Disorders, Gall Bladder Disease and Gastroesophageal Reflux Disease GENITOURINARY: Positive Kidney Stones; Negative Renal Disease MUSCULOSKELETAL: Positive Arthritis ENDOCRINE: Positive Hypothyroidism; Negative Endocrine Disorders, Diabetes Mellitus Type 1 or Diabetes Mellitus Type 2 HEMATOLOGIC: Negative Sickle Cell Disease PSYCHO/SOCIAL: Positive Depression Surgical History SURGICAL: Positive Section Social History SMOKING STATUS: Never smoker SUBSTANCE USE: former substance user and marijuana (smokes marijuana, 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) ED Exam Narrative Physical exam: See [facility] for Dr. Walters's physical exam documentation. Course Quality Measures none Orders Category Date Time Status CBC Stat Lab 03/27/25 06:55 Completed Comprehensive Metabolic Panel Stat Lab 03/27/25 06:55 Results Drug Screen,Urine Stat Lab 03/27/25 07:15 Completed HCG Qualitative,Urine Stat Lab 03/27/25 07:15 Completed Lipase Stat Lab 03/27/25 06:55 Results Mag [Magnesium] Stat Lab 03/27/25 06:55 Completed Urinalysis, C/S if Indicated Stat Lab 03/27/25 07:15 Completed Haloperidol Lactate [Haldol Inj] Med 03/27/25 08:01 Discontinued 5 mg IM X1 ONE LORazepam [Ativan] Med 03/27/25 08:01 Discontinued 0.5 mg PO X1 ONE Levothyroxine Sodium [Synthroid] Med 03/27/25 08:01 Discontinued 88 mcg PO X1 ONE Ondansetron Inj [Zofran Inj] Med 03/27/25 06:42 Discontinued 4 mg IM X1 ONE Sodium Chloride 0.9% 500 ml [Ns] 500 ml Med 03/27/25 09:42 Discontinued IV 999 mls/hr mg Hyd/Al Hyd/Homero Susp [Maalox Susp] Med 03/27/25 08:06 Discontinued 30 ml PO X1 ONE Vital Signs Vital signs: Vital Signs Temperature 99.2 F 03/27/25 06:33 Pulse Rate 86 03/27/25 06:33 Respiratory Rate 18 03/27/25 06:33 Blood Pressure 121/86 H 03/27/25 06:33 Pulse Oximetry (%) 96 03/27/25 06:33 Oxygen Delivery Method Room Air 03/27/25 06:33 Abdominal Pain MDM MDM Narrative MDM Narrative:: This section includes all my notes and documentations, including HPI, PE, and ED course. Raul Walters MD HPI: 44yo female with a history of gastroparesis presents to the ED for complaints of epigastric pain, nausea, and vomiting for the last 4 days. Patient has been evaluated here twice over the last few days for the same complaints. Patient has been unable to take any of her PO medications, including her hypothyroidism medication. She is currently on Zepbound and gets her shot on Wednesdays. She denies any diarrhea or any other associated symptoms. She started her menses today. ROS: All negative except as documented in HPI. Physical Exam: GENERAL APPEARANCE: alert and oriented x 4, well-developed, well-nourished, no acute distress VITALS: All vitals were reviewed and the pulse ox is 96% on room air, which is normal according to my interpretation. HEENT: Normocephalic, atraumatic; pupils equal, round, reactive to light; EOMI; mucous membranes pink, moist; oropharynx clear NECK: Supple LUNGS: CTABL; no wheezes, no rales, no rhonchi HEART: Regular rate, regular rhythm; normal S1, S2; no murmurs ABDOMEN: non distended; normal BS; soft, mild generalized tenderness, mild voluntary guarding BACK: no CVA tenderness EXTREMITIES: atraumatic; no edema NEUROLOGIC: awake; alert and oriented x4; cranial nerves II-XII grossly intact; no focal sensory or motor deficits PSYCHIATRIC: appropriate mood and affect SKIN: warm, dry, normal color; no rashes I reviewed all diagnostic test results: Blood tests remarkable for WBC 11.9. UA remarkable for 4225 RBCs (patient is on her menses). UDS positive for marijuana. At this point, diagnoses include: vomiting. Treatment here included: Maalox, Haldol, Levothyroxine, Ativan, Zofran, IV fluid. Recommended outpatient care. Based on my best medical judgment, made decision no further evaluation or treatment indicated at this time. Patient understands and agrees to the customized discharge instructions and printed, see below. Discharge instructions from Dr. Walters: Today you were seen in the emergency department for episodes of vomiting again. Again we performed multiple tests. These test all are reassuring and basically normal. Your vital signs stayed normal and stable. If you have any worsening or any further medical problems please return to the ER right away and we will help you. Otherwise it is very important that you follow-up with your primary care doctor. You should discuss with your primary care doctor whether it is a good idea for you to continue taking the Zepbound. Please follow-up with them within the next several days Patient data External records reviewed:: [facility] previous records (Per chart review, patient was seen here on 03/24/25 and 03/25/25 for the same complaint.) Clinical information provided by:: patient Social determinants that could affect healthcare access:: substance use (marijuana use) Patient has the following chronic illnesses:: HLD How is presenting disease/condition affected by chronic disease/condition?: uneffected by Evaluation data The following diagnostics were reviewed and interpreted by me:: lab results Lab and/or radiology exams considered but not ordered:: none Interpretation Summary: I reviewed all diagnostic test results: Blood tests remarkable for WBC 11.9. UA remarkable for 4225 RBCs (patient is on her menses). UDS positive for marijuana. Medications / Prescriptions Medications or Prescriptions considered but not ordered:: none Medication administrations:: Medication Administration History Discontinued Medications Al Hydrox/Mg Hydrox/Simethicone (Mg Hyd/Al Hyd/Homero (Maalox Reg) Susp 30 Ml Udc) 30 ml PO X1 ONE Stop: 03/27/25 08:07 Last Admin: 03/27/25 09:16 Dose: 30 ml Documented By: JAMISON Comments: late due to pt having n/v, waited for IM zofran to kick in before admin Haloperidol Lactate (Haloperidol Lact Inj 5 Mg/Ml Vial) 5 mg IM X1 ONE Stop: 03/27/25 08:02 Last Admin: 03/27/25 08:22 Dose: 5 mg Documented By: JAMISON Sodium Chloride (Ns) 500 mls @ 999 mls/hr IV .Q31M ONE Stop: 03/27/25 10:12 Last Admin: 03/27/25 10:15 Dose: 999 mls/hr Documented By: ELY Levothyroxine Sodium (Levothyroxine Sodium 88 Mcg Tablet) 88 mcg PO X1 ONE Stop: 03/27/25 08:02 Last Admin: 03/27/25 09:43 Dose: 88 mcg Documented By: JAMISON Comments: late due to n/v Lorazepam (Lorazepam 0.5 Mg Tablet) 0.5 mg PO X1 ONE Stop: 03/27/25 08:02 Last Admin: 03/27/25 09:16 Dose: 0.5 mg Documented By: JAMISON Comments: late due to pt having n/v, waited for IM zofran to kick in before admin Ondansetron HCl (Ondansetron Inj 2 Mg/Ml Inj 2 Ml) 4 mg IM X1 ONE; Protocol Stop: 03/27/25 06:43 Last Admin: 03/27/25 08:19 Dose: 4 mg Documented By: JAMISON Comments: pt does not have an IV but MAR would not let me save with out documenting one Maalox, Haldol, Levothyroxine, Ativan, Zofran Consultations Consultation(s) initiated? (list below): No Diagnosis Differential diagnosis abdominal pain: other (gastroparesis, dehydration, electrolyte abnormality, medication side effect, drug-induced vomiting) Most likely diagnosis given after review of the tests above:: see clinical impression below Admission Indicated Admission indicated?: not indicated Admission Request Was there a request for admission?: No Disposition Plan Disposition Plan: Discharge Discharge Attestation Discharge Attestation: The patient and all family members were given an opportunity to ask questions and understood the discharge instructions. Discharge instructions specifically effects, indications for sooner follow up or return to the emergency department, and the expected course of current diagnosis. Patient condition: Stable Discharge Plan Plan Patient Disposition: HOME (Self Care) Discharge Disposition comment: Stable for discharge home Patient condition on transfer: Stable Prescriptions/Referrals Prescriptions/Med Rec: No Action multivitamin [Daily-Colin] Tablet 1 tab PO DAILY levothyroxine 50 mcg tablet 50 mcg PO DAILY trazodone 150 mg tablet 150 mg PO HS duloxetine 60 mg capsule,delayed release(DR/EC) 60 mg PO DAILY Patient Comments: TAKE 1 CAPSULE BY MOUTH EVERY DAY uxqwpkwfue-pgvmfdqnmdtip-ywal [Fioricet] 50-300-40 mg capsule 1 cap PO Q8H PRN (Reason: pain) Qty: 14 0RF kokixkripi-rpogvpmowc-ccm-cod [Fioricet with Codeine] 52-683-87-30 mg capsule 1 cap PO Q4H PRN (Reason: pain) Qty: 10 0RF hydrocodone-acetaminophen 5-325 mg tablet 1 tab PO Q8H MDD 3 PRN (Reason: pain) Qty: 10 0RF metronidazole 500 mg tablet 500 mg PO BID Qty: 10 0RF acetaminophen-codeine 300-30 mg tablet 2 tab PO Q8H MDD 6 PRN (Reason: pain) Qty: 20 0RF ondansetron 4 mg tablet,disintegrating 4 mg PO TID PRN (Reason: nausea and vomiting) 30 Days Qty: 10 0RF cefdinir 300 mg capsule 300 mg PO BID 5 Days Qty: 10 0RF famotidine [Pepcid] 40 mg tablet 40 mg PO BID Qty: 20 0RF metoclopramide HCl [Reglan] 10 mg tablet 10 mg PO Q6H PRN (Reason: nausea and vomiting) Qty: 30 0RF Referrals: [facility] [Provider Group] - In 1 week Problem List Clinical Impression: Vomiting Patient/Caregiver Discharge Instructions Discharge Activity: activity as tolerated Other Activity Instructions:: As tolerated Diet Instructions: [place] diet. Nothing spicy or fried. Education Materials: Self-Care for Vomiting and Diarrhea, ED Diet for Vomiting or ..., ED Vomiting (Adult) Additional Instructions: Today you were seen in the emergency department for episodes of vomiting again. Again we performed multiple tests. These test all are reassuring and basically normal. Your vital signs stayed normal and stable. If you have any worsening or any further medical problems please return to the ER right away and we will help you. Otherwise it is very important that you follow-up with your primary care doctor. You should discuss with your primary care doctor whether it is a good idea for you to continue taking the Zepbound. Please follow-up with them within the next several days Print Language: Azerbaijani Stand Alone Forms: [employer] Award Info., Patient Portal Info Letter
[2025-03-27 07:49] LABS: Collection Type, Urine Voided
[2025-03-27 08:13] LABS: Alanine Aminotransferase 21 U/L (10-49); Albumin, Serum 4.7 gm/dL (3.5-5.0); Albumin/Globulin Ratio 2.0 (1.2-2.2); Alkaline Phosphatase 84 U/L (46-116); Anion Gap 12 (7-16); Aspartate Amino Transferase 22 U/L (0-34); BUN/Creatinine Ratio 13 Ratio (12-20); Bilirubin,Total 0.5 mg/dL (0.3-1.2); Blood Urea Nitrogen 10 mg/dL (9-23); Calcium 9.5 mg/dL (8.3-10.6); Calcium (Corrected) 9.5 mg/dL (8.5-10.1); Carbon Dioxide 23.2 mMol/L (20.0-31.0); Chloride 103 mMol/L (98-107); Creatinine (Component) 0.8 mg/dL (0.6-1.3); Estimated Creatinine Clearance 91.1 mL/min (>60); Globulin 2.4 gm/dL (2.3-3.5); Glucose 100 mg/dL (74-106); Osmolality,Calculated 274 (275-295); Potassium 3.4 mMol/L (3.4-5.1); Sodium 138 mMol/L (136-145); Total Protein 7.1 gm/dL (5.7-8.2); eGFR > 60 See Note
[2025-03-27] MEDS: ONDANSETRON INJ 2 MG/ML INJ 2 ML 4 MG IM (08:19)
[2025-03-27 08:20] LABS: Bilirubin,Urine Negative (Negative); Blood,Urine 3+ (Negative); Culture Indicated,Urine Not Indicated; Glucose, Urine Trace (Negative); Ketones,Urine Trace (Negative); Leukocyte Esterase,Urine Positive (Negative); Nitrite,Urine Negative (Negative); PH,Urine 6.0 (5.0-7.0); Protein,Urine 1+ (Neg - Trace); RBC,Urine 4225 /hpf (0-3); Specific Gravity,Urine 1.036 (1.001-1.035); Squamous Epithelial Cell,Urine 12 /hpf (0-5); Urobilinogen,Urine Negative mg/dL (0.0-1.0); WBC,Urine 8 /hpf (0-5)
[2025-03-27] MEDS: HALOPERIDOL LACT INJ 5 MG/ML VIAL IM (08:22)
[2025-03-27 08:33] LABS: Clarity,Urine Turbid (Clear/Hazy); Color,Urine Lt-Red (Lt Yel-Yel)
[2025-03-27 08:34] LABS: Amphetamine/Methamp Scrn,U Negative (Negative); Barbiturate Screen,Urine Negative (Negative); Benzodiazepines Screen,Urine Negative (Negative); Benzoylecgonine Screen, Ur Negative (Negative); Fentanyl Screen,Urine Negative (Negative); HCG Qualitative,Urine Negative; Opiate Screen,Urine Negative (Negative); THC Screen,Urine Positive (Negative)
[2025-03-27 08:43] VITALS: BP 119/66; PULSE 79; RESP 18; TEMP 36.8; O2SAT 97
[2025-03-27 09:03] LABS: Magnesium 2.0 mg/dL (1.6-2.6)
[2025-03-27] MEDS: MG HYD/AL HYD/SIME (Maalox Reg) SUSP 30 ML UDC PO (09:16)
[2025-03-27] MEDS: LEVOTHYROXINE SODIUM 88 MCG TABLET PO (09:43)
[2025-03-27] MEDS: SODIUM CHLORIDE 0.9% 500 ML 500 ML 999 ML IV (10:15)
[2025-03-27 22:03] LABS: Lipase 56 U/L (12-53)
== END 2025-03-27 12:12 | disposition home or self-care (01) ==
PROVIDERS: Nurse Practitioner Family; Emergency Provider Emergency Medicine
DX: R10.9 Unspecified abdominal pain (principal); R11.10 Vomiting, unspecified
CPT/HCPCS: 36415; 80053; 80307; 81001; 81025; 83690; 83735; 85025; 96372; 99283; J1630; J2405; J7999; A9270

== ENCOUNTER 2025-04-10 03:11 | Emergency (ER) | payer OTHER, SELFPAY ==
[2025-04-10 03:13] VITALS: BMI 28.3
[2025-04-10 04:09] VITALS: BP 123/85; PULSE 110; RESP 18; TEMP 36.9; O2SAT 97
--- NOTE | 2025-04-10 04:14 | XR_ITS ---
Examination: CT abdomen and pelvis without contrast. Coronal 3-D reconstructions. Sagittal 2-D reconstructions. Date and time of exam:April 10, 2025 0529 hrs. Indications: Onset abdominal pain today CTDI: vol (mGy): 7.51 DLP: (mGycm): 429 Technique: Axial images of the abdomen have been obtained, 3 mm slice thickness Intravenous contrast material has not been administered. Low dose protocols were performed. One or more of the following dose reduction techniques were used; automated exposure control, adjustment of the mA and/or KV according to patient size, use of iterative reconstruction technique. Findings: No focal liver or splenic lesions Absent gallbladder No pancreatic mass. No renal or ureteral calculi, no hydronephrosis Aorta normal size. Absent appendix No bowel obstruction Scattered colonic diverticulosis No pelvic mass Contracted urinary bladder The osseous structures are intact Impression: No acute process in the abdomen or pelvis
--- NOTE | 2025-04-10 04:14 | PD.EDRME ---
Rapid Medical Screening Exam RME Arrival date/time: 04/10/25 03:11 This is a case of 44-year-old female with no medical history came in in the emergency room due to generalized abdominal pain nausea vomiting for 3 days worsening of the symptoms this patient decided to start consult here in the emergency room Chief Complaint: Nausea/Vomiting/Diarrhea Time Seen by Provider: 04/10/25 04:13 Vital signs: Vital Signs Temperature 98.5 F 04/10/25 04:09 Pulse Rate 110 H 04/10/25 04:09 Respiratory Rate 18 04/10/25 04:09 Blood Pressure 123/85 H 04/10/25 04:09 Pulse Oximetry (%) 97 04/10/25 04:09 Oxygen Delivery Method Room Air 04/10/25 04:09
[2025-04-10 04:28] LABS: Collection Type, Urine Clean Catch
[2025-04-10 04:34] LABS: HCG Qualitative,Urine Negative
[2025-04-10 04:42] LABS: Bacteria,Urine 1+; Bilirubin,Urine 1+ (Negative); Blood,Urine 3+ (Negative); Clarity,Urine Turbid (Clear/Hazy); Color,Urine Drk-Yellow (Lt Yel-Yel); Glucose, Urine Trace (Negative); Ketones,Urine Negative (Negative); Leukocyte Esterase,Urine Positive (Negative); Nitrite,Urine Positive (Negative); PH,Urine 6.0 (5.0-7.0); Protein,Urine 1+ (Neg - Trace); RBC,Urine 40 /hpf (0-3); Specific Gravity,Urine 1.036 (1.001-1.035); Squamous Epithelial Cell,Urine 9 /hpf (0-5); Urobilinogen,Urine 3.0 mg/dL (0.0-1.0); WBC,Urine 21 /hpf (0-5)
[2025-04-10] MEDS: ONDANSETRON INJ 2 MG/ML INJ 2 ML 4 MG IM (04:56)
[2025-04-10 05:02] LABS: Basophils # (Auto) 0.1 Thou/mm3 (0.0-0.2); Basophils % (Auto) 0 % (0-2.5); Eosinophils # (Auto) 0.0 Thou/mm3 (0.0-0.5); Eosinophils % (Auto) 0 % (0-10); Hematocrit 40.4 % (36.0-46.0); Hemoglobin 13.5 g/dL (12.0-16.0); Immature Granulocytes Auto 0.05 Thou/mm3 (0.00-0.00); Lymphocytes # (Auto) 1.1 Thou/mm3 (1.0-4.8); Lymphocytes % (Auto) 9 % (10-50); Mean Corpuscular HGB Conc 33.4 g/dl (31.0-37.0); Mean Corpuscular Hemoglobin 29.3 pg (25.0-35.0); Mean Corpuscular Volume 88 fL (80-100); Monocytes # (Auto) 1.0 Thou/mm3 (0.0-0.8); Monocytes % (Auto) 8 % (0-12); Neutrophils # (Auto) 10.5 Thou/mm3 (1.8-7.7); Neutrophils % (Auto) 83 % (37-80); Nucleated Red Blood Cell # 0.00 Thou/mm3 (0.00-0.00); Nucleated Red Blood Cell % 0 /100 WBC (0); Platelet Count 353 Thou/mm3 (140-440); RDW Standard Deviation 42.4 fL (36.4-46.3); Red Blood Count 4.61 Miln/mm3 (4.00-5.20); White Blood Count 12.7 Thou/mm3 (3.6-11.0)
[2025-04-10 05:21] LABS: Alanine Aminotransferase 33 U/L (10-49); Albumin, Serum 4.6 gm/dL (3.5-5.0); Albumin/Globulin Ratio 1.7 (1.2-2.2); Alkaline Phosphatase 87 U/L (46-116); Amylase 79 U/L (30-118); Anion Gap 12 (7-16); Aspartate Amino Transferase 19 U/L (0-34); BUN/Creatinine Ratio 11 Ratio (12-20); Bilirubin,Total 0.6 mg/dL (0.3-1.2); Blood Urea Nitrogen 11 mg/dL (9-23); Calcium 10.0 mg/dL (8.3-10.6); Calcium (Corrected) 10.0 mg/dL (8.5-10.1); Carbon Dioxide 22.6 mMol/L (20.0-31.0); Chloride 104 mMol/L (98-107); Creatinine (Component) 1.0 mg/dL (0.6-1.3); Estimated Creatinine Clearance 71.9 mL/min (>60); Globulin 2.7 gm/dL (2.3-3.5); Glucose 120 mg/dL (74-106); Osmolality,Calculated 277 (275-295); Potassium 4.0 mMol/L (3.4-5.1); Sodium 139 mMol/L (136-145); Total Protein 7.3 gm/dL (5.7-8.2); eGFR > 60 See Note
--- NOTE | 2025-04-10 06:06 | PRELIM_ITS ---
CT scan of the abdomen and pelvis without intravenous contrast (axial sections with sagittal and coronal reformats) April 10, 2025 0529 hours Clinical History: abd pain Comparison: No prior study is available for comparison. Findings: The lung bases are clear. The gallbladder is surgically absent. The liver, pancreas, spleen, kidneys and adrenals are unremarkable on this noncontrast study. No evidence of bowel obstruction. The appendix is not visualized. There is no mesenteric or retroperitoneal adenopathy. The urinary bladder is incompletely distended at the time of the examination and appears mildly thick walled. There is no free fluid or free air. The osseous structures are unremarkable. Impression: No evidence of bowel obstruction, free air or abscess. Report Electronically Signed By: Yesenia Baig 04/10/2025 6:06:35 AM [EST]
--- NOTE | 2025-04-10 06:29 | PD.EDNV ---
Nausea/Vomit./Diarrhea-RME/HPI General Chief complaint: Nausea/Vomiting/Diarrhea Stated complaint: VOMITING, THINKS SHE HAS UTI Time Seen by Provider: 04/10/25 04:13 Source: patient, RN notes reviewed and old records reviewed Arrival date/time: 04/10/25 03:11 Mode of arrival: ambulatory Limitations: no limitations RME / HPI RME / HPI Narrative: 44yof presents to ED for dysuria that initiated yesterday with suprapubic discomfort and urinary pressure s/p voiding. Patient reports nausea and vomiting since onset. No fever, flank pain or hematuria reported. No medications or treatments travel pta. Related Data Home Medications ?Medication ?Instructions ?Recorded ?Confirmed duloxetine 60 mg capsule,delayed 60 mg PO DAILY 01/01/21 01/01/21 release levothyroxine 50 mcg tablet 50 mcg PO DAILY 01/01/21 01/01/21 multivitamin (Daily-Colin tablet) 1 tab PO DAILY 01/01/21 01/01/21 trazodone 150 mg tablet 150 mg PO HS 01/01/21 01/01/21 Previous Rx's ?Medication ?Instructions ?Recorded toirnywuyn-glyewzwgfxzjy-uxwwpavg 1 cap PO Q8H PRN pain #14 caps 01/01/21 50 mg-300 mg-40 mg capsule (Fioricet) butalbital 50 mg-acetaminophen 300 1 cap PO Q4H PRN pain #10 caps 02/03/21 mg-caffeine 40 mg-codeine 30 mg cap (Fioricet with Codeine) hydrocodone 5 mg-acetaminophen 325 1 tab PO Q8H PRN pain #10 tabs 04/03/21 mg tablet acetaminophen 300 mg-codeine 30 mg 2 tab PO Q8H PRN pain #20 tabs 03/24/25 tablet metronidazole 500 mg tablet 500 mg PO BID #10 tabs 03/24/25 ondansetron 4 mg disintegrating 4 mg PO TID PRN nausea and 03/24/25 tablet vomiting 30 days #10 tabs famotidine 40 mg tablet (Pepcid) 40 mg PO BID #20 tabs 03/25/25 metoclopramide HCl 10 mg tablet 10 mg PO Q6H PRN nausea and 03/25/25 (Reglan) vomiting #30 tabs acetaminophen 500 mg tablet 1,000 mg (2 x 500 mg) PO Q6H PRN 04/10/25 (Tylenol Extra Strength) pain #30 tabs cefdinir 300 mg capsule 300 mg PO BID 7 days #14 caps 04/10/25 ondansetron HCl 4 mg tablet 4 mg PO Q6H PRN nausea and 04/10/25 vomiting #15 tabs phenazopyridine 200 mg tablet 200 mg PO TID PRN pain 2 days #6 04/10/25 (Pyridium) tabs Allergies Allergy/AdvReac Type Severity Reaction Status Date / Time hydrocodone AdvReac Intermediate Abdominal Verified 04/10/25 03:12 Pain Review of Systems Review of Systems Systems Reviewed: All systems reviewed, normal except as documented Constitutional Constitutional: Denies chills, Denies fever(s) and Denies headache(s) ENT Ears, Nose, Mouth, and Throat: Denies dizziness and Denies headache(s) Cardiovascular Cardiovascular: Denies chest pain and Denies dyspnea Respiratory Respiratory: Denies dyspnea Gastrointestinal Gastrointestinal: Reports abdominal pain, Reports nausea and Reports vomiting Genitourinary Genitourinary: Reports dysuria, Denies flank pain and Denies hematuria Neurologic Neurologic: Denies dizziness and Denies headache(s) Past Medical History Surgical History SURGICAL: Positive Abdominal Surgery (appendectomy), of Shoulder Sx, Knee Sx, Section and Hx Cholecystectomy Social History SMOKING STATUS: Never smoker SUBSTANCE USE: marijuana ALCOHOL: Never Past Medical History Comments PMH COMMENT: gastroparesis ED Exam General Limitations: Present no limitations General appearance: Present alert and in no apparent distress Head Head exam: Present atraumatic and normocephalic Eye Eye exam: Present normal appearance, PERRL and EOMI ENT ENT exam: Present normal exam and mucous membranes moist Neck Neck exam: Present normal inspection and full ROM Chest Chest inspection: Present normal inspection and symmetric chest wall rise Respiratory Respiratory exam: Present normal lung sounds bilaterally; Absent respiratory distress Cardiovascular Cardiovascular exam: Present regular rate and normal rhythm Abdominal Exam Abdominal exam: Present soft and tenderness (Mild, suprapubic); Absent distention, guarding or rebound Extremities Exam Extremities exam: Present normal inspection and full ROM Back Exam Back exam: Absent CVA tenderness (R) or CVA tenderness (L) Neurological Exam Neurological exam: Present alert and oriented X3 Psychiatric Psychiatric exam: Present normal affect and normal mood Skin Skin exam: Present warm, dry, intact and normal color Course Quality Measures none Orders Category Date Time Status CT abdomen pelvis wo con Stat Exams 04/10/25 04:14 Completed Amylase Stat Lab 04/10/25 04:44 Completed CBC Stat Lab 04/10/25 04:44 Completed Comprehensive Metabolic Panel Stat Lab 04/10/25 04:44 Completed HCG Qualitative,Urine Stat Lab 04/10/25 04:23 Completed Urinalysis Stat Lab 04/10/25 04:23 Completed Ondansetron Inj [Zofran Inj] Med 04/10/25 04:17 Discontinued 4 mg IM X1 ONE Promethazine HCl [Phenergan] Med 04/10/25 06:42 Discontinued 25 mg PO X1 ONE Vital Signs Vital signs: Vital Signs Temperature 98.5 F 04/10/25 04:09 Pulse Rate 110 H 04/10/25 04:09 Respiratory Rate 18 04/10/25 04:09 Blood Pressure 123/85 H 04/10/25 04:09 Pulse Oximetry (%) 97 04/10/25 04:09 Oxygen Delivery Method Room Air 04/10/25 04:09 Nausea/Vomiting/Diarrhea MDM Narrative MDM Narrative:: 44yof presents to ED for dysuria that initiated yesterday with suprapubic discomfort and urinary pressure s/p voiding. Patient reports nausea and vomiting since onset. No fever, flank pain or hematuria reported. No medications or treatments travel pta. Patient is nontoxic-appearing, afebrile, vitals are stable. Tolerating po. ED workup reassuring. Will treat for UTI. Good candidate for outpatient management. Encouraged rest, fluids, symptomatic treatment prn. Stable for discharge, RTED precautions given. Patient data External records reviewed:: [facility] previous records (03/27/2025 ED visit for nausea and vomiting) Clinical information provided by:: patient Social determinants that could affect healthcare access:: other (specify) (poor access to healthcare) Patient has the following chronic illnesses:: Gastroparesis How is presenting disease/condition affected by chronic disease/condition?: exacerbated by Evaluation data The following diagnostics were reviewed and interpreted by me:: lab results and radiology exam(s) Lab and/or radiology exams considered but not ordered:: none Interpretation Summary: wbc 12 electrolytes wnl UA +leuks/nitrites CT abd/pelvis: Impression: No evidence of bowel obstruction, free air or abscess. Report Electronically Signed By: Yesenia Baig 04/10/2025 6:06:35 AM [EST] Medications / Prescriptions Medications / Prescriptions considered but not ordered:: IVF - patient tolerating po prior to discharge Medication administrations:: Medication Administration History Discontinued Medications Ondansetron HCl (Ondansetron Inj 2 Mg/Ml Inj 2 Ml) 4 mg IM X1 ONE; Protocol Stop: 04/10/25 04:18 Last Admin: 04/10/25 04:56 Dose: 4 mg Documented By: CVL Promethazine HCl (Promethazine Hcl 25 Mg Tablet) 25 mg PO X1 ONE Stop: 04/10/25 06:43 Last Admin: 04/10/25 06:52 Dose: 25 mg Documented By: CVL Above medications administered in the ED Consultations Consultation(s) initiated? (list below): No Diagnosis Nausea Differential Diagnosis: other (Nausea/vomiting, gastroenteritis, gastroparesis, viral illness, cannabinoid hyperemesis syndrome, electrolyte imbalance, dehydration) Most likely diagnosis given after review of the tests above:: UTI, nausea/vomiting Admission Indicated Admission indicated?: not indicated Admission Request Was there a request for admission?: No Disposition Plan Disposition Plan: Discharge Discharge Attestation Discharge Attestation: The patient and all family members were given an opportunity to ask questions and understood the discharge instructions. Discharge instructions specifically effects, indications for sooner follow up or return to the emergency department, and the expected course of current diagnosis. Patient condition: Stable Discharge Plan Plan Patient Disposition: HOME (Self Care) Patient condition on transfer: Stable Prescriptions/Referrals Prescriptions/Med Rec: New cefdinir 300 mg capsule 300 mg PO BID 7 Days Qty: 14 0RF phenazopyridine [Pyridium] 200 mg tablet 200 mg PO TID PRN (Reason: pain) 2 Days Qty: 6 0RF ondansetron HCl 4 mg tablet 4 mg PO Q6H PRN (Reason: nausea and vomiting) Qty: 15 0RF acetaminophen [Tylenol Extra Strength] 500 mg tablet 1,000 mg PO Q6H PRN (Reason: pain) Qty: 30 0RF No Action multivitamin [Daily-Colin] Tablet 1 tab PO DAILY levothyroxine 50 mcg tablet 50 mcg PO DAILY trazodone 150 mg tablet 150 mg PO HS duloxetine 60 mg capsule,delayed release(DR/EC) 60 mg PO DAILY Patient Comments: TAKE 1 CAPSULE BY MOUTH EVERY DAY dzsibijqlo-qeljgctamgoqw-vmnr [Fioricet] 50-300-40 mg capsule 1 cap PO Q8H PRN (Reason: pain) Qty: 14 0RF lvjiayywkf-mvuqcjhggn-acj-cod [Fioricet with Codeine] [id number] mg capsule 1 cap PO Q4H PRN (Reason: pain) Qty: 10 0RF hydrocodone-acetaminophen 5-325 mg tablet 1 tab PO Q8H MDD 3 PRN (Reason: pain) Qty: 10 0RF metronidazole 500 mg tablet 500 mg PO BID Qty: 10 0RF acetaminophen-codeine 300-30 mg tablet 2 tab PO Q8H MDD 6 PRN (Reason: pain) Qty: 20 0RF ondansetron 4 mg tablet,disintegrating 4 mg PO TID PRN (Reason: nausea and vomiting) 30 Days Qty: 10 0RF famotidine [Pepcid] 40 mg tablet 40 mg PO BID Qty: 20 0RF metoclopramide HCl [Reglan] 10 mg tablet 10 mg PO Q6H PRN (Reason: nausea and vomiting) Qty: 30 0RF Referrals: No Primary/Family,Physician [Primary Care Provider] - In 1 week Problem List Clinical Impression: UTI (urinary tract infection), Nausea & vomiting Patient/Caregiver Discharge Instructions Education Materials: Urinary Tract Infections in Women Print Language: [place] Stand Alone Forms: [employer] Award Info., Patient Portal Info Letter PA/JUSTICE COURT DEPUTY CLERK Supervising Physician PA/JUSTICE COURT DEPUTY CLERK Supervising Physician: Oumar
[2025-04-10 06:34] VITALS: BP 125/80; PULSE 98; RESP 18; TEMP 37.1; O2SAT 98
[2025-04-10 06:52] VITALS: RESP 16
[2025-04-10] MEDS: PROMETHAZINE HCL 25 MG TABLET PO (06:52)
== END 2025-04-10 06:53 | disposition home or self-care (01) ==
PROVIDERS: Nurse Practitioner Family; Emergency Provider Emergency Medicine
DX: N39.0 Urinary tract infection, site not specified (principal); R11.2 Nausea with vomiting, unspecified
CPT/HCPCS: 36415; 74176; 80053; 81001; 81025; 82150; 85025; 96372; 99284; J2405; A9270

== ENCOUNTER 2025-06-30 08:40 | Emergency (ER) | payer MEDICAID, SELFPAY ==
[2025-06-30 08:41] VITALS: BMI 33.5
[2025-06-30 09:00] VITALS: BP 110/81; PULSE 95; RESP 17; TEMP 37.5; O2SAT 97
--- NOTE | 2025-06-30 09:27 | EDRME_ITS ---
Rapid Medical Screening Exam RME Arrival date/time: 06/30/25 08:40 Chief Complaint: Back Pain/Injury Time Seen by Provider: 06/30/25 09:19 Vital signs: Vital Signs Temperature 99.5 F 06/30/25 09:00 Pulse Rate 95 06/30/25 09:00 Respiratory Rate 17 06/30/25 09:00 Blood Pressure 110/81 06/30/25 09:00 Pulse Oximetry (%) 97 06/30/25 09:00 Oxygen Delivery Method Room Air 06/30/25 09:00 RME Narrative: 44-year-old female with past medical history of gastroparesis, with a past medical history of UTI just finished a weeks course of Bactrim this past Friday and her urinary symptoms subsided however she has now complaining of a left- sided flank pain associated with nausea vomiting. Denies fever, numbness, tingling, weakness, incontinence. I briefly performed a screening evaluation to initiate work-up and expedite care. Complete history, physical exam, and plan of care is deferred to the provider in the main ED. Exam: Head: Normocephalic, atraumatic. Respiratory: Normal effort. No respiratory distress or accessory muscle use. Neuro: Speech normal. Skin: Warm, dry, normal color. Psych: Pleasant. Normal affect. Cooperative. Clinical Impression: Rule out pyelonephritis versus musculoskeletal back pain
--- NOTE | 2025-06-30 09:29 | XR_ITS ---
Examination: CT abdomen and pelvis without contrast. Coronal 3-D reconstructions. Sagittal 2-D reconstructions. Date and time of exam: 06/30/2025 at 12:06 p.m. CTDI: vol (mGy): 9.2 DLP: (mGycm): 540 CLINICAL INDICATION: Left-sided flank pain for 2 days Technique: Axial images of the abdomen have been obtained, 3 mm slice thickness Intravenous contrast material has not been administered. Low dose protocols were performed. One or more of the following dose reduction techniques were used; automated exposure control, adjustment of the mA and/or KV according to patient size, use of iterative reconstruction technique. Findings: Lower lungs are clear. On this noncontrasted CT exam, the liver and spleen and right and left kidneys appear normal. With reference to the clinical history I do not see any obstructive uropathy or renal calculi on either side. Pancreas and adrenal glands appear normal. There is a retroaortic left renal vein which is a variation of normal anatomy. There are surgical clips in the gallbladder fossa. There are also several surgical clips in the region of the appendix in the right lower quadrant. All of the small bowel loops and loops of colon appear radiographically normal. There is minimal lobulated contour of the uterine fundus which could indicate the presence of a few minimal fibroids, in general the size and appearance of the uterus are normal. No adnexal pathology is seen in either the right or left sides. No bony abnormalities are seen and in particular, the mid lower dorsal spine and lumbosacral spine and disc spaces have an essentially normal appearance throughout. IMPRESSION: 1. Status post cholecystectomy, status post appendectomy. 2 minimal lobulated contour of the uterus might reflect the presence of some small fibroids, but otherwise the size and appearance of the uterus are normal 3. In all other respects this study is entirely normal
[2025-06-30] MEDS: ONDANSETRON ODT 4 MG TABRAP PO (09:57)
[2025-06-30] MEDS: KETOROLAC INJ 30 MG/ML VIAL IM (09:59)
[2025-06-30 10:07] LABS: Lactate (Lactic Acid) 1.8 mMol/L (0.4-2.0)
[2025-06-30 10:12] LABS: Basophils # (Auto) 0.0 Thou/mm3 (0.0-0.2); Basophils % (Auto) 1 % (0-2.5); Eosinophils # (Auto) 0.1 Thou/mm3 (0.0-0.5); Eosinophils % (Auto) 3 % (0-10); Hematocrit 41.4 % (36.0-46.0); Hemoglobin 13.7 g/dL (12.0-16.0); Immature Granulocytes Auto 0.02 Thou/mm3 (0.00-0.00); Lymphocytes # (Auto) 1.3 Thou/mm3 (1.0-4.8); Lymphocytes % (Auto) 24 % (10-50); Mean Corpuscular HGB Conc 33.1 g/dl (31.0-37.0); Mean Corpuscular Hemoglobin 29.0 pg (25.0-35.0); Mean Corpuscular Volume 88 fL (80-100); Monocytes # (Auto) 0.5 Thou/mm3 (0.0-0.8); Monocytes % (Auto) 10 % (0-12); Neutrophils # (Auto) 3.4 Thou/mm3 (1.8-7.7); Neutrophils % (Auto) 62 % (37-80); Nucleated Red Blood Cell # 0.00 Thou/mm3 (0.00-0.00); Nucleated Red Blood Cell % 0 /100 WBC (0); Platelet Count 283 Thou/mm3 (140-440); RDW Standard Deviation 41.5 fL (36.4-46.3); Red Blood Count 4.73 Miln/mm3 (4.00-5.20); White Blood Count 5.5 Thou/mm3 (3.6-11.0)
[2025-06-30 10:24] LABS: Collection Type, Urine Voided
[2025-06-30 10:29] LABS: Alanine Aminotransferase 37 U/L (10-49); Albumin, Serum 4.6 gm/dL (3.5-5.0); Albumin/Globulin Ratio 1.6 (1.2-2.2); Alkaline Phosphatase 112 U/L (46-116); Anion Gap 8 (7-16); Aspartate Amino Transferase 31 U/L (0-34); BUN/Creatinine Ratio 12 Ratio (12-20); Bilirubin,Total 0.2 mg/dL (0.3-1.2); Blood Urea Nitrogen 11 mg/dL (9-23); Calcium 9.6 mg/dL (8.3-10.6); Calcium (Corrected) 9.6 mg/dL (8.5-10.1); Carbon Dioxide 26.0 mMol/L (20.0-31.0); Chloride 107 mMol/L (98-107); Creatinine (Component) 0.9 mg/dL (0.6-1.3); Estimated Creatinine Clearance 86.8 mL/min (>60); Globulin 2.9 gm/dL (2.3-3.5); Glucose 104 mg/dL (74-106); Lipase 34 U/L (12-53); Osmolality,Calculated 280 (275-295); Potassium 4.8 mMol/L (3.4-5.1); Sodium 141 mMol/L (136-145); Total Protein 7.5 gm/dL (5.7-8.2); eGFR > 60 See Note
[2025-06-30 10:31] LABS: HCG,Qualitative Serum Negative
[2025-06-30 11:08] LABS: Bacteria,Urine 1+; Bilirubin,Urine Negative (Negative); Blood,Urine 2+ (Negative); Clarity,Urine Clear (Clear/Hazy); Color,Urine Lt-Yellow (Lt Yel-Yel); Glucose, Urine Negative (Negative); Ketones,Urine Negative (Negative); Leukocyte Esterase,Urine Negative (Negative); Nitrite,Urine Negative (Negative); PH,Urine 6.0 (5.0-7.0); Protein,Urine Negative (Neg - Trace); RBC,Urine 24 /hpf (0-3); Specific Gravity,Urine 1.025 (1.001-1.035); Squamous Epithelial Cell,Urine 25 /hpf (0-5); Urobilinogen,Urine Negative mg/dL (0.0-1.0); WBC,Urine 1 /hpf (0-5)
--- NOTE | 2025-06-30 13:41 | PD.EDBACK ---
ED Back Injury Pain RME/HPI General Chief Complaint: Back Pain/Injury Stated Complaint: LEFT KIDNEY PAIN X3 DAYS Time Seen by Provider: 06/30/25 09:19 Arrival date/time: 06/30/25 08:40 RME / HPI RME / HPI Narrative: 44-year-old female with past medical history of gastroparesis, with a past medical history of UTI just finished a weeks course of Bactrim this past Friday and her urinary symptoms subsided however she has now complaining of a left-sided flank pain associated with nausea vomiting. Denies fever, numbness, tingling, weakness, incontinence. Impression: R Related Data Home Medications ?Medication ?Instructions ?Recorded ?Confirmed duloxetine 60 mg capsule,delayed 60 mg PO DAILY 01/01/21 01/01/21 release levothyroxine 50 mcg tablet 50 mcg PO DAILY 01/01/21 01/01/21 multivitamin (Daily-Colin tablet) 1 tab PO DAILY 01/01/21 01/01/21 trazodone 150 mg tablet 150 mg PO HS 01/01/21 01/01/21 Previous Rx's ?Medication ?Instructions ?Recorded [id number]-ptjmlymrkrcae-[id number] 1 cap PO Q8H PRN pain #14 caps 01/01/21 50 mg-300 mg-40 mg capsule (Fioricet) butalbital 50 mg-acetaminophen 300 1 cap PO Q4H PRN pain #10 caps 02/03/21 mg-caffeine 40 mg-codeine 30 mg cap (Fioricet with Codeine) hydrocodone 5 mg-acetaminophen 325 1 tab PO Q8H PRN pain #10 tabs 04/03/21 mg tablet acetaminophen 300 mg-codeine 30 mg 2 tab PO Q8H PRN pain #20 tabs 03/24/25 tablet metronidazole 500 mg tablet 500 mg PO BID #10 tabs 03/24/25 famotidine 40 mg tablet (Pepcid) 40 mg PO BID #20 tabs 03/25/25 metoclopramide HCl 10 mg tablet 10 mg PO Q6H PRN nausea and 03/25/25 (Reglan) vomiting #30 tabs acetaminophen 500 mg tablet 1,000 mg (2 x 500 mg) PO Q6H PRN 04/10/25 (Tylenol Extra Strength) pain #30 tabs ondansetron HCl 4 mg tablet 4 mg PO Q6H PRN nausea and 04/10/25 vomiting #15 tabs ketorolac 10 mg tablet 10 mg PO Q8H PRN pain 3 days #14 06/30/25 tabs ondansetron 4 mg disintegrating 4 mg PO Q8H PRN nausea and 06/30/25 tablet vomiting #12 tabs Allergies Allergy/AdvReac Type Severity Reaction Status Date / Time hydrocodone AdvReac Intermediate Abdominal Verified 06/30/25 08:41 Pain ED Exam Narrative Physical exam: Constitutional: Patient alert and oriented. Well appearing. No acute distress. Not toxic appearing. Head: Normocephalic, atraumatic. Eyes: Periorbital regions bilaterally normal to inspection. Conjunctiva clear bilaterally. Sclera anicteric bilaterally. Pupils equal, round, reactive to light bilaterally. Extraocular movements intact bilaterally. Mouth/Throat: Mucous membranes moist. No stridor or muffled voice. No trismus. Handling secretions without difficulty. Airway widely patent. Neck: Supple. Trachea midline. No JVD. No nuchal rigidity. Normal range of motion. Respiratory: Normal effort. No accessory muscle use or respiratory distress. Lungs clear to auscultation bilaterally without rhonchi, wheezes, or crackles. Cardiovascular: RRR. Normal S1/S2. No murmurs or rubs. Radial pulses intact bilaterally. Abdomen: Soft. Non-distended. Non-tender throughout. No pulsatile mass. No guarding or rebound. Negative Cooley?s sign. Negative McBurney?s point tenderness. Negative Rovsing?s. Back: No midline tenderness or step-offs. No CVA tenderness to palpation bilaterally. Positive left paralumbar tenderness to palpation. Upper Extremities: No gross deformities. Lower Extremities: No gross deformities. No edema or calf tenderness. Deep tendon reflexes 2+ and symmetric for lower extremities bilaterally. Straight during 5 out of 5 and sensation intact to light touch extremities bilaterally. Neuro: Speech normal. No gross motor or sensory deficits to upper or lower extremities bilaterally. GCS 15. CN II?XII grossly intact. Skin: Warm, dry, normal color. Psych: Normal affect. Cooperative. Normal insight. Course Quality Measures none Orders Category Date Time Status NPO NOW Care 06/30/25 09:29 Completed Diet NPO (NOW) Diet 06/30/25 09:[address] abdomen pelvis wo con Stat Exams 06/30/25 09:29 Completed Blood Culture (Lab) Stat Lab 06/30/25 10:08 Received CBC Stat Lab 06/30/25 09:43 Completed CMP [Comprehensive Metabolic Panel] Stat Lab 06/30/25 09:43 Completed HCG,Qualitative Serum Stat Lab 06/30/25 09:43 Completed Lactate (Lactic Acid) Stat Lab 06/30/25 09:43 Completed Lipase Stat Lab 06/30/25 09:43 Completed Urinalysis Stat Lab 06/30/25 10:15 Completed Urine Culture Stat Lab 06/30/25 10:15 Received Ketorolac Inj [Toradol Inj] Med 06/30/25 09:29 Discontinued 30 mg IM X1 ONE Ondansetron Odt [Zofran Odt] Med 06/30/25 09:29 Discontinued 4 mg PO X1 ONE Vital Signs Vital signs: Vital Signs Temperature 99.5 F 06/30/25 09:00 Pulse Rate 95 06/30/25 09:00 Respiratory Rate 17 06/30/25 09:00 Blood Pressure 110/81 06/30/25 09:00 Pulse Oximetry (%) 97 06/30/25 09:00 Oxygen Delivery Method Room Air 06/30/25 09:00 Back Pain / Injury MDM Narrative MDM Narrative:: MDM: Musculoskeletal back pain This patient presents with acute low back pain most consistent with musculoskeletal strain or spasm. Pain is localized without radiation, paresthesia, or weakness. No bowel or bladder incontinence. No acute neurologic deficits. Doubt cauda equina syndrome, spinal cord compression, infection, trauma, malignancy, dissection, or nephrolithiasis based on history, exam, and absence of red flag symptoms. Doubt renal colic, pyelonephritis, or obstructive uropathy and CT negative for these findings Advanced imaging with MRI considered but not indicated given absence of neurologic deficits or high-risk features UA notable for microscopic hematuria with 24 RBCs and 25 squames as well as and 1+ bacteria pending urine culture however there is no nitrites or leuks and doubt infection remainder of lab work without severe metabolic or electrolyte abnormality CT scan notable for minimal contour abnormalities of the uterus which could reflect possible fibroids otherwise no intra-abdominal or pelvic pathology, no urologic obstruction Serial abdominal exams benign without peritonitis Plan: Symptomatic management with analgesics, stretching, and activity as tolerated. Discussed medication precautions and return precautions for worsening pain, fever, new weakness, numbness, or bowel/bladder changes. Advised follow-up with PCP within 1?2 days for reassessment. At the time of reassessment prior to discharge, the patient remains alert and oriented ?3 with GCS 15. Vitals are normal, pain is controlled, and the patient is tolerating oral intake without nausea or vomiting. The patient is agreeable to discharge and verbalizes understanding of the diagnosis, studies, treatment plan, medications (including side effects/precautions), and strict ER return precautions as discussed in the ED. All concerns were addressed, and the patient is comfortable with the plan. Patient data External records reviewed:: [facility] previous records Clinical information provided by:: patient Social determinants that could affect healthcare access:: none Patient has the following chronic illnesses:: None How is presenting disease/condition affected by chronic disease/condition?: uneffected by Evaluation data The following diagnostics were reviewed and interpreted by me:: lab results and radiology exam(s) Lab and/or radiology exams considered but not ordered:: Additional Labs and radiology considered, but not ordered as they were not clinically indicated at this time. Interpretation Summary: As noted Medications / Prescriptions Medications or Prescriptions considered but not ordered:: I ordered medications based on the patient?s clinical needs and assessment, as documented in the chart. For medications not prescribed, they were not indicated for the patient's current condition, and I determined they were unnecessary at this time to avoid potential risks or complications. Medication administrations:: Medication Administration History Discontinued Medications Ketorolac Tromethamine (Ketorolac Inj 30 Mg/Ml Vial) 30 mg IM X1 ONE Stop: 06/30/25 09:30 Last Admin: 06/30/25 09:59 Dose: 30 mg Documented By: ROBERT Ondansetron HCl (Ondansetron Odt 4 Mg Tabrap) 4 mg PO X1 ONE; Protocol Stop: 06/30/25 09:30 Last Admin: 06/30/25 09:57 Dose: 4 mg Documented By: ROBERT As noted Consultations Consultation(s) initiated? (list below): No Diagnosis Differential diagnosis back pain/injury: strain of lumbar region, renal colic, pyelonephritis and discitis Most likely diagnosis given after review of the tests above:: Lumbar strain Admission Indicated Admission indicated?: not indicated Explain why admission is indicated or not indicated:: Escalation of care including admission/observation considered but I decided to discharge because based on the overall clinical presentation, and after consideration of the patient's course in the emergency department and plan for outpatient management, I believe that neither further observation nor inpatient care is required at this time. Admission Request Was there a request for admission?: No Disposition Plan Disposition Plan: Discharge Discharge Attestation Discharge Attestation: The patient and all family members were given an opportunity to ask questions and understood the discharge instructions. Discharge instructions specifically effects, indications for sooner follow up or return to the emergency department, and the expected course of current diagnosis. Patient condition: Stable Discharge Plan Plan Patient Disposition: HOME (Self Care) Patient condition on transfer: Stable Prescriptions/Referrals Prescriptions/Med Rec: New ketorolac 10 mg tablet 10 mg PO Q8H PRN (Reason: pain) 3 Days Qty: 14 0RF ondansetron 4 mg tablet,disintegrating 4 mg PO Q8H PRN (Reason: nausea and vomiting) Qty: 12 0RF Rx Instructions: 1-2 tabs PO Q8Hr prn nausea or vomit No Action multivitamin [Daily-Colin] Tablet 1 tab PO DAILY levothyroxine 50 mcg tablet 50 mcg PO DAILY trazodone 150 mg tablet 150 mg PO HS duloxetine 60 mg capsule,delayed release(DR/EC) 60 mg PO DAILY Patient Comments: TAKE 1 CAPSULE BY MOUTH EVERY DAY [id number]-vejf [Fioricet] 50-300-40 mg capsule 1 cap PO Q8H PRN (Reason: pain) Qty: 14 0RF [id number]-lykmmzvghx-vas-cod [Fioricet with Codeine] [id number] mg capsule 1 cap PO Q4H PRN (Reason: pain) Qty: 10 0RF hydrocodone-acetaminophen 5-325 mg tablet 1 tab PO Q8H MDD 3 PRN (Reason: pain) Qty: 10 0RF metronidazole 500 mg tablet 500 mg PO BID Qty: 10 0RF acetaminophen-codeine 300-30 mg tablet 2 tab PO Q8H MDD 6 PRN (Reason: pain) Qty: 20 0RF famotidine [Pepcid] 40 mg tablet 40 mg PO BID Qty: 20 0RF metoclopramide HCl [Reglan] 10 mg tablet 10 mg PO Q6H PRN (Reason: nausea and vomiting) Qty: 30 0RF ondansetron HCl 4 mg tablet 4 mg PO Q6H PRN (Reason: nausea and vomiting) Qty: 15 0RF acetaminophen [Tylenol Extra Strength] 500 mg tablet 1,000 mg PO Q6H PRN (Reason: pain) Qty: 30 0RF Referrals: No Primary/Family,Physician [Primary Care Provider] - In 1 week Problem List Clinical Impression: Back pain, Strain of lumbar region Patient/Caregiver Discharge Instructions Education Materials: ED Back Pain (Acute or Chronic) Additional Instructions: Follow up with your primary medical doctor within 24 hours. Return to the Emergency Room immediately for any new, worsening, continuing symptoms or any concerns at all. Return to the Emergency Room within 24 hours if you are unable to follow up with your primary medical doctor within 24 hours. Print Language: Malaysian Stand Alone Forms: [employer] Award Info., Patient Portal Info Letter PA/DRILLING FOREMAN Supervising Physician PA/[employer]RILLING [employer]EMAN Supervising Physician: Dr. Suarez
== END 2025-06-30 14:06 | disposition home or self-care (01) ==
PROVIDERS: Emergency Provider Physician Assistant
DX: S39.012A Strain of muscle, fascia and tendon of lower back, initial encounter (principal); R10.A2 Flank pain, left side; R31.29 Other microscopic hematuria; X58.XXXA Exposure to other specified factors, initial encounter
CPT/HCPCS: 36415; 74176; 80053; 81001; 83605; 83690; 84703; 85025; 87040; 87086; 96372; 99283; J1885; Q0162

== ENCOUNTER → 2025-07-06 | Outpatient (CLI) | payer MEDICAID, SELFPAY ==
--- NOTE | 2025-07-06 13:38 | XR_ITS ---
Examination: Shoulder, right, 3 views Technique: Shoulder AP internal rotation, AP external rotation, Y view shoulder, 3 views Exam date and time : July 06, 2025, 1356 hours INDICATIONS: Lifting injury to the shoulder 3 months ago, shoulder pain. FINDINGS: No shoulder fracture or dislocation No AC joint separation No arthritic change IMPRESSION: No shoulder fracture or dislocation
== END | disposition home or self-care (01) ==
LOC: CDIM 13:23
PROVIDERS: PCP Physician Assistant; Referring Provider Physician Assistant; Visit Provider Physician Assistant
DX: S49.91XA Unspecified injury of right shoulder and upper arm, initial encounter (principal); X58.XXXA Exposure to other specified factors, initial encounter
CPT/HCPCS: 73030

== ENCOUNTER → 2025-07-11 | Outpatient (CLI) | payer MEDICAID, SELFPAY ==
[2025-07-11 10:24] LABS: Basophils # (Auto) 0.0 Thou/mm3 (0.0-0.2); Basophils % (Auto) 1 % (0-2.5); Eosinophils # (Auto) 0.1 Thou/mm3 (0.0-0.5); Eosinophils % (Auto) 2 % (0-10); Hematocrit 41.8 % (36.0-46.0); Hemoglobin 13.7 g/dL (12.0-16.0); Immature Granulocytes Auto 0.02 Thou/mm3 (0.00-0.00); Lymphocytes # (Auto) 1.5 Thou/mm3 (1.0-4.8); Lymphocytes % (Auto) 26 % (10-50); Mean Corpuscular HGB Conc 32.8 g/dl (31.0-37.0); Mean Corpuscular Hemoglobin 28.6 pg (25.0-35.0); Mean Corpuscular Volume 87 fL (80-100); Monocytes # (Auto) 0.6 Thou/mm3 (0.0-0.8); Monocytes % (Auto) 10 % (0-12); Neutrophils # (Auto) 3.6 Thou/mm3 (1.8-7.7); Neutrophils % (Auto) 62 % (37-80); Nucleated Red Blood Cell # 0.00 Thou/mm3 (0.00-0.00); Nucleated Red Blood Cell % 0 /100 WBC (0); Platelet Count 321 Thou/mm3 (140-440); RDW Standard Deviation 41.0 fL (36.4-46.3); Red Blood Count 4.79 Miln/mm3 (4.00-5.20); White Blood Count 5.8 Thou/mm3 (3.6-11.0)
[2025-07-11 11:39] LABS: Vitamin D 25 Hydroxy Total 27.3 ng/mL (7.3-40.2)
[2025-07-11 11:42] LABS: Alanine Aminotransferase 48 U/L (10-49); Albumin, Serum 4.8 gm/dL (3.5-5.0); Albumin/Globulin Ratio 1.7 (1.2-2.2); Alkaline Phosphatase 136 U/L (46-116); Anion Gap 9 (7-16); Aspartate Amino Transferase 29 U/L (0-34); BUN/Creatinine Ratio 15 Ratio (12-20); Bilirubin,Total 0.3 mg/dL (0.3-1.2); Blood Urea Nitrogen 12 mg/dL (9-23); Calcium 9.5 mg/dL (8.3-10.6); Calcium (Corrected) 9.5 mg/dL (8.5-10.1); Carbon Dioxide 26.5 mMol/L (20.0-31.0); Cardiac Risk Estimate 5.8 RATIO (3.7-5.6); Chloride 106 mMol/L (98-107); Cholesterol 267 mg/dL (132-200); Creatinine (Component) 0.8 mg/dL (0.6-1.3); Free T4 (Free Thyroxine) 1.21 ng/dL (0.89-1.76); Globulin 2.9 gm/dL (2.3-3.5); Glucose 101 mg/dL (74-106); HDL Cholesterol 46 mg/dL (40-60); LDL Cholesterol,Calculated 184 mg/dL (0-130); Osmolality,Calculated 280 (275-295); Potassium 4.5 mMol/L (3.4-5.1); Sodium 141 mMol/L (136-145); Thyroid Stimulating Hormone 1.31 uIU/mL (0.55-4.78); Total Protein 7.7 gm/dL (5.7-8.2); Triglycerides 185 mg/dL (30-150); eGFR > 60 See Note
[2025-07-11 12:17] LABS: Glucose Estimated Average 105 mg/dL (80-131); Hemoglobin A1C 5.3 % Hgb (4.8-6.0)
[2025-07-11 12:24] LABS: Syphilis Nonreactive (Nonreactive)
[2025-07-11 16:11] LABS: Chlamydia trachomatis PCR Negative (Not Detect); Neisseria Gonorrhoeae DNA PCR Negative (Not Detect); Trichomonas Negative (Negative)
[2025-07-14 23:35] LABS: HCV RNA, PCR <15 NOT DETECTED IU/mL; Hepatitis B Virus DNA* NOT DETECTED
[2025-07-18 07:08] LABS: HCV RNA, PCR Log IU <1.18 NOT DETECTED Log IU/mL; HIV Ag/Ab, 4th Gen NON-REACTIVE; Hepatitis B DNA PCR NOT DETECTED Log IU/mL
== END | disposition home or self-care (01) ==
LOC: COPL 09:02
PROVIDERS: PCP Physician Assistant; Referring Provider Physician Assistant; Visit Provider Physician Assistant
DX: E03.9 Hypothyroidism, unspecified (principal); Z12.89 Encounter for screening for malignant neoplasm of other sites; N92.6 Irregular menstruation, unspecified; E78.5 Hyperlipidemia, unspecified; Z11.3 Encounter for screening for infections with a predominantly sexual mode of transmission
CPT/HCPCS: 36415; 80053; 80061; 82306; 83036; 84439; 84443; 85025; 86780; 87389; 87491; 87517; 87522; 87591; 87661